=== PATIENT | female | born 1950 | race Caucasian/White ===

== ENCOUNTER 2016-10-30 13:42 | Inpatient (IN) ==
[2016-10-30] MEDS ORDERED: methylPREDNISolone 125 MG/2 ML VIAL IVP ONE (14:11)
[2016-10-30] MEDS ORDERED: Ipratropium/Albuterol Neb 3 ML IH ONE (14:11)
--- NOTE | 2016-10-30 14:17 | Emergency Department Note ---
Disposition Clinical Impression: Hypoxia, Hypercarbia Disposition: Admitted As Inpatient Condition: Good Referrals: Joseph Chapin MD [Primary Care Provider] - Forms: ED Satisfaction Letter Time of Disposition: 16:56 SOB HPI - General Chief Complaint: ED Shortness of Breath/Dyspnea Stated Complaint: [facility]ACI[facility], sent from [facility] Time Seen by Provider: 10/30/16 13:49 Source: patient Limitations: no limitations Nursing Notes Reviewed: Yes Vital Signs Reviewed: Yes - History of Present Illness 66 year old female who has a HX of breast cancer with mookie to her lymph nodes states that she was being treated for pneumonia recently about 2 months ago as an outpatinet and they had to stop her chemotherapy at that time. Patient states that she was being evaluated at the cancer center today and she fell more short of breath than usual. She states that she has been feeling increasingly short of breath with increased work of breathing and productive cough for the past two weeks. She typically wears 5-6LNC and ranges around 85% but today she doesnt feel like that is enough oxygen for her at thist time and she dripped inot the 80% She currently has increased her oxygen requirement and it has stablized to her baseline. She denies HX of DVTs/PEs. She also denies fevers, chills, nausea, vomitting, abdominal pain. Patient states that she does have dull chest pain but no previous history of GA. - Related Data Home Medications Medication Instructions Recorded Confirmed Albuterol Sulfate [Albuterol 2 puff IH Q4HR PRN 01/26/15 10/30/16 Inhaler] Calcium Carbonate/Vitamin D3 1 each PO DAILY 01/26/15 10/30/16 [Calcium 600-Vit D3 800 Tablet] Formoterol Fumarate [Perforomist] 20 mcg IH PRN PRN 01/26/15 10/30/16 GlipiZIDE [Glucotrol] 10 mg PO 0800 01/26/15 10/30/16 Losartan [Cozaar] 50 mg PO DAILY 01/26/15 10/30/16 Montelukast [Singulair] 10 mg PO DAILY 01/26/15 10/30/16 Omeprazole [PriLOSEC] 20 mg PO DAILY 01/26/15 10/30/16 Potassium Chloride [Klor-Con 10 meq PO DAILY 01/26/15 10/30/16 Sprinkle] Roflumilast [Daliresp] 500 mcg PO DAILY 01/26/15 10/30/16 Tiotropium [Spiriva] 18 mcg IH DAILY 01/26/15 10/30/16 Triamterene/HCTZ 37.5/25mg 1 each PO DAILY 01/26/15 10/30/16 [Dyazide] Vitamin E (Dl,Tocopheryl Acet) 400 unit PO DAILY 01/26/15 10/30/16 [Vitamin E] Budesonide Neb [Pulmicort Neb] 0.5 mg IH BIDR 06/26/16 10/30/16 Oxygen 1 each .ROUTE AD 07/09/16 10/30/16 Pravastatin Sodium [Pravachol] 40 mg PO DAILY 07/12/16 10/30/16 PredniSONE [Deltasone] 20 mg PO PRN PRN 07/12/16 10/30/16 Previous Rx's Medication Instructions Recorded HYDROcodone/Acet 10/325 mg [Cost 1 tab PO Q6HR PRN #56 tab 07/12/16 10-325 mg] Metoclopramide HCl 5 mg PO ACHS #60 tablet 10/01/16 Pantoprazole Sodium [Protonix] 40 mg PO DAILY #30 tablet. 10/01/16 Allergies Allergy/AdvReac Type Severity Reaction Status Date / Time fluticasone Allergy Blister Verified 10/01/16 12:31 [From Advair Diskus] salmeterol Allergy Blister Verified 10/01/16 12:31 [From Advair Diskus] Constitutional: Reports: weakness. Denies: fever, chills, weight change Eyes: Denies: eye pain, eye discharge, vision change ENT ED: Denies: ear pain, throat pain, dental pain, hearing loss, epistaxis, congestion, dysphagia Cardiovascular: Reports: chest pain, dyspnea on exertion. Denies: palpitations , edema, syncope Respiratory: Reports: dyspnea, wheezes. Denies: cough, hemoptysis, stridor Gastrointestinal: Denies: abdominal pain, nausea, vomiting, diarrhea, constipation, hematemesis, melena, hematochezia Genitourinary: Denies: dysuria, frequency, hematuria, discharge Musculoskeletal: Denies: back pain, neck pain, arthralgia, myalgia Integumentary: Denies: rash, abrasion, lesions Neurological: Denies: headache, weakness, numbness, paresthesias, confusion, abnormal gait, vertigo Psychiatric: Denies: anxiety, depression, suicidal thoughts, homicidal thoughts , auditory hallucinations, visual hallucinations Endocrine: Denies: fatigue Hematological/Lymphatic: Denies: easy bleeding, easy bruising Allergic/Immunologic: Denies: facial swelling, urticaria Past Medical History - Past Medical History Medical history: Reports: cancer, COPD, diabetes, hypertension Surgical history: Reports: cholecystectomy Psychiatric history: Reports: no psych history CHIEF ENGINEER history: Reports: no CHIEF ENGINEER history - Social History Smoking Status: Former smoker Smokeless Tobacco Status: No Alcohol use: Reports: none Drug use: Reports: none Physical Exam - General Limitations: no limitations General appearance: alert, in no apparent distress - Head Head exam: atraumatic, normocephalic, normal inspection - Eye Eye exam: Present: normal appearance, PERRL, EOMI - Expanded Eye Exam Pupils: Left: reactive - ENT ENT exam: normal exam, normal oropharynx, mucous membranes moist - Expanded ENT Exam External ear exam: Present: normal external inspection Mouth exam: Present: normal external inspection Teeth exam: Present: normal inspection Throat exam: Present: normal inspection - Neck Neck exam: Present: normal inspection, full ROM, trachea midline - Chest Chest inspection: Present: normal inspection, symmetric chest wall rise - Respiratory Respiratory exam: Present: normal lung sounds bilaterally - Cardiovascular Cardiovascular exam: Present: normal rhythm, tachycardia, normal heart sounds - Abdominal Exam Abdominal exam: Present: soft, Non-Tender. Absent: tenderness, distention, guarding, rebound, rigidity - Extremities Exam Extremities exam: Present: normal inspection, full ROM. Absent: tenderness, pedal edema - Expanded Upper Extremity Exam Shoulder exam: Present: normal inspection, full ROM Arm exam: Present: normal inspection, full ROM Elbow exam: Present: normal inspection, full ROM Forearm/Wrist exam: Present: normal inspection, full ROM Hand exam: Present: normal inspection, full ROM Vascular exam: Normal: capillary refill, radial pulse - Expanded Lower Extremity Exam Hip/Pelvis exam: Present: normal inspection, full ROM Upper leg exam: Present: normal inspection, full ROM Knee exam: Present: normal inspection, full ROM Lower leg exam: Present: normal inspection, full ROM Ankle exam: Present: normal inspection, full ROM Foot/toe exam: Present: normal inspection, full ROM Neurovascular/Tendon exam: Absent: motor deficit, sensory deficit, tendon deficit - Back Exam Back exam: Present: normal inspection, full ROM. Absent: tenderness - Neurological Exam Neurological exam: Present: alert, oriented X3 - Expanded Neurological Exam Patient oriented to: Present: person, place, time Coma Scale Eye Opening: Spontaneous Coma Scale Motor Response: Obeys Commands Coma Scale Verbal Response: Oriented Coma Scale Total: 15 - Psychiatric Psychiatric exam: Present: normal affect, normal mood - Skin Skin exam: Present: warm, dry, intact, normal color Course Course Narrative: we will do a sepsis workup due to elevatd HR and rule out pneumonia in addition to CTA chest to rule out PE. IVF and duoneb/solumedrol for therapy. - Reevaluation(s) Reevaluation #1: patinet is retaining CO2, we will place patient on bipap due to increased hypoxia. Time: 15:35 - Consultations Consultation #1: discussed case with Dr. River and he accepts patient for admission. Time: 16:55 Vital Signs Temperature 97.7 F 10/30/16 13:45 Pulse Rate 104 10/30/16 13:45 Respiratory Rate 18 10/30/16 13:45 Blood Pressure 152/82 10/30/16 13:45 O2 Sat by Pulse Oximetry 85 10/30/16 13:45 Temperature 97.7 F 10/30/16 13:45 Pulse Rate 107 10/30/16 16:49 Respiratory Rate 24 10/30/16 16:49 Blood Pressure 138/56 10/30/16 16:49 O2 Sat by Pulse Oximetry 97 10/30/16 16:49 Oxygen Delivery Oxygen Delivery Bipap Shortness of Breath/Dyspnea - Lab Data Result diagrams: 10/30/16 14:24 10/30/16 14:24 Lab Results 10/30/16 10/30/16 10/30/16 Range/Units 14:24 14:24 14:24 WBC 9.0 (4.3-11.1) K/mcL RBC 4.22 (3.82-4.97) M/mcL Hgb 11.5 (11.5-15.4) g/dL Hct 38.1 (35.3-44.9) % MCV 90.3 (83.0-100.0) fL MCH 27.3 L (28.0-33.3) pg MCHC 30.2 L (31.6-35.5) g/dL RDW 16.0 H (11.5-14.5) % Plt Count 275 (140-400) K/mcL MPV 10.2 (9.4-12.4) fL Immature Gran % 0.7 (0-4) % Seg Neutrophils % 75.2 % Lymphocytes % 16.4 % Monocytes % 6.5 % Eosinophils % 0.9 % Basophils % 0.3 % Neutrophils # 6.7 (1.6-8.9) K/mcL Lymphocytes # 1.5 (0.6-4.6) K/mcL Monocytes # 0.6 (0.0-1.3) K/mcL Eosinophils # 0.1 (0.0-0.6) K/mcL Basophils # 0.0 (0.0-0.2) K/mcL PT 11.1 (9.4-12.1) Seconds INR 1.0 APTT 27.9 (26.0-36.0) Seconds ABG pH (7.32-7.45) pH Units ABG pCO2 (35-45) mmHg ABG pO2 (85-104) mmHg ABG HCO3 (21-27) mEQ/L ABG Total CO2 (20-26) mEq/L ABG O2 Saturation (95-98) % ABG Base Excess (-2.0 to 3.0) mEq/L Liter Flow L/MIN Blood Gas Modality Inspired O2 % Sodium 139 (136-145) mEq/L Potassium 3.9 (3.5-4.5) mEq/L Chloride 91 L (98-109) mEq/L Carbon Dioxide 44 H* (19-29) mEq/L BUN 12 (7-20) mg/dL Creatinine 0.65 (0.57-1.11) mg/dL Est GFR ( Amer) > 60 (> 60) Est GFR (Non-Af Amer) > 60 (> 60) BUN/Creatinine Ratio 18 (6-26) Glucose 153 H (70-99) mg/dL Calculated Osmolality 291 (280-300) Lactic Acid (0.5-2.2) mmol/L Calcium 9.5 (8.6-10.8) mg/dL Phosphorus (2.3-4.7) mg/dL Magnesium (1.6-2.6) mg/dL Total Bilirubin (0.2-1.2) mg/dL Direct Bilirubin (0.0-0.5) mg/dL Indirect Bilirubin (0.0-1.2) mg/dL AST (5-34) Units/L ALT (0-55) Units/L Alkaline Phosphatase (38-126) Units/L Troponin I (0-0.03) ng/mL Serum Total Protein (6.0-8.3) g/dL Albumin (3.5-5.0) g/dL Globulin (2.4-3.5) g/dL Albumin/Globulin Ratio (1.1-2.2) Urine Color (Yellow) Urine Clarity (Clear) Urine pH (5.0-8.0) pH Units Ur Specific [place] (1.010-1.025) Urine Protein (Neg-Trace) mg/dL Urine Glucose (UA) (Normal) mg/dL Urine Ketones (Negative) mg/dL Urine Blood (Negative) Urine Nitrite (Negative) Urine Bilirubin (Negative) Urine Urobilinogen (Normal) mg/dL Ur Leukocyte Esterase (Negative) Urine Microscopic RBC (0-3) per hpf Urine Microscopic WBC (0-3) per hpf Ur Squamous Epith Cells (None-Few) per lpf Urine Bacteria (None-Few) per hpf Hyaline Casts (None-Few) per lpf Ur Culture Indicated? (NO) 10/30/16 10/30/16 10/30/16 Range/Units 14:24 14:24 14:24 WBC (4.3-11.1) K/mcL RBC (3.82-4.97) M/mcL Hgb (11.5-15.4) g/dL Hct (35.3-44.9) % MCV (83.0-100.0) fL MCH (28.0-33.3) pg MCHC (31.6-35.5) g/dL RDW (11.5-14.5) % Plt Count (140-400) K/mcL MPV (9.4-12.4) fL Immature Gran % (0-4) % Seg Neutrophils % % Lymphocytes % % Monocytes % % Eosinophils % % Basophils % % Neutrophils # (1.6-8.9) K/mcL Lymphocytes # (0.6-4.6) K/mcL Monocytes # (0.0-1.3) K/mcL Eosinophils # (0.0-0.6) K/mcL Basophils # (0.0-0.2) K/mcL PT (9.4-12.1) Seconds INR APTT (26.0-36.0) Seconds ABG pH (7.32-7.45) pH Units ABG pCO2 (35-45) mmHg ABG pO2 (85-104) mmHg ABG HCO3 (21-27) mEQ/L ABG Total CO2 (20-26) mEq/L ABG O2 Saturation (95-98) % ABG Base Excess (-2.0 to 3.0) mEq/L Liter Flow L/MIN Blood Gas Modality Inspired O2 % Sodium (136-145) mEq/L Potassium (3.5-4.5) mEq/L Chloride (98-109) mEq/L Carbon Dioxide (19-29) mEq/L BUN (7-20) mg/dL Creatinine (0.57-1.11) mg/dL Est GFR ( Amer) (> 60) Est GFR (Non-Af Amer) (> 60) BUN/Creatinine Ratio (6-26) Glucose (70-99) mg/dL Calculated Osmolality (280-300) Lactic Acid 1.2 (0.5-2.2) mmol/L Calcium (8.6-10.8) mg/dL Phosphorus 3.5 (2.3-4.7) mg/dL Magnesium 1.7 (1.6-2.6) mg/dL Total Bilirubin 0.5 (0.2-1.2) mg/dL Direct Bilirubin 0.2 (0.0-0.5) mg/dL Indirect Bilirubin 0.3 (0.0-1.2) mg/dL AST 12 (5-34) Units/L ALT 12 (0-55) Units/L Alkaline Phosphatase 45 (38-126) Units/L Troponin I 0.02 (0-0.03) ng/mL Serum Total Protein 6.8 (6.0-8.3) g/dL Albumin 3.5 (3.5-5.0) g/dL Globulin 3.3 (2.4-3.5) g/dL Albumin/Globulin Ratio 1.1 (1.1-2.2) Urine Color (Yellow) Urine Clarity (Clear) Urine pH (5.0-8.0) pH Units Ur Specific [place] (1.010-1.025) Urine Protein (Neg-Trace) mg/dL Urine Glucose (UA) (Normal) mg/dL Urine Ketones (Negative) mg/dL Urine Blood (Negative) Urine Nitrite (Negative) Urine Bilirubin (Negative) Urine Urobilinogen (Normal) mg/dL Ur Leukocyte Esterase (Negative) Urine Microscopic RBC (0-3) per hpf Urine Microscopic WBC (0-3) per hpf Ur Squamous Epith Cells (None-Few) per lpf Urine Bacteria (None-Few) per hpf Hyaline Casts (None-Few) per lpf Ur Culture Indicated? (NO) 10/30/16 10/30/16 Range/Units 14:39 14:40 WBC (4.3-11.1) K/mcL RBC (3.82-4.97) M/mcL Hgb (11.5-15.4) g/dL Hct (35.3-44.9) % MCV (83.0-100.0) fL MCH (28.0-33.3) pg MCHC (31.6-35.5) g/dL RDW (11.5-14.5) % Plt Count (140-400) K/mcL MPV (9.4-12.4) fL Immature Gran % (0-4) % Seg Neutrophils % % Lymphocytes % % Monocytes % % Eosinophils % % Basophils % % Neutrophils # (1.6-8.9) K/mcL Lymphocytes # (0.6-4.6) K/mcL Monocytes # (0.0-1.3) K/mcL Eosinophils # (0.0-0.6) K/mcL Basophils # (0.0-0.2) K/mcL PT (9.4-12.1) Seconds INR APTT (26.0-36.0) Seconds ABG pH 7.39 (7.32-7.45) pH Units ABG pCO2 71 H* (35-45) mmHg ABG pO2 73 L (85-104) mmHg ABG HCO3 43.0 H (21-27) mEQ/L ABG Total CO2 45.2 H (20-26) mEq/L ABG O2 Saturation 94 L (95-98) % ABG Base Excess 14.9 H (-2.0 to 3.0) mEq/L Liter Flow 5 L/MIN Blood Gas Modality [place] Inspired O2 40 % Sodium (136-145) mEq/L Potassium (3.5-4.5) mEq/L Chloride (98-109) mEq/L Carbon Dioxide (19-29) mEq/L BUN (7-20) mg/dL Creatinine (0.57-1.11) mg/dL Est GFR ( Amer) (> 60) Est GFR (Non-Af Amer) (> 60) BUN/Creatinine Ratio (6-26) Glucose (70-99) mg/dL Calculated Osmolality (280-300) Lactic Acid (0.5-2.2) mmol/L Calcium (8.6-10.8) mg/dL Phosphorus (2.3-4.7) mg/dL Magnesium (1.6-2.6) mg/dL Total Bilirubin (0.2-1.2) mg/dL Direct Bilirubin (0.0-0.5) mg/dL Indirect Bilirubin (0.0-1.2) mg/dL AST (5-34) Units/L ALT (0-55) Units/L Alkaline Phosphatase (38-126) Units/L Troponin I (0-0.03) ng/mL Serum Total Protein (6.0-8.3) g/dL Albumin (3.5-5.0) g/dL Globulin (2.4-3.5) g/dL Albumin/Globulin Ratio (1.1-2.2) Urine Color Yellow (Yellow) Urine Clarity Clear (Clear) Urine pH 7.5 (5.0-8.0) pH Units Ur Specific [place] 1.010 (1.010-1.025) Urine Protein Negative (Neg-Trace) mg/dL Urine Glucose (UA) Normal (Normal) mg/dL Urine Ketones Negative (Negative) mg/dL Urine Blood Negative (Negative) Urine Nitrite Negative (Negative) Urine Bilirubin Negative (Negative) Urine Urobilinogen Normal (Normal) mg/dL Ur Leukocyte Esterase Trace H (Negative) Urine Microscopic RBC 0-3 (0-3) per hpf Urine Microscopic WBC 0-3 (0-3) per hpf Ur Squamous Epith Cells Moderate H (None-Few) per lpf Urine Bacteria None Seen (None-Few) per hpf Hyaline Casts None Seen (None-Few) per lpf Ur Culture Indicated? YES A (NO) - EKG Data EKG attestation: Yes I reviewed and interpreted this EKG. EKG results narrative: NSR with rate of 99. NO STEMI. normla intevals. occasional PVCs. no change from 02/17/15 1415
[2016-10-30 14:39] LABS: Basophils % 0.3 %; Eosinophils # 0.1 K/mcL (0.0-0.6); Eosinophils % 0.9 %; Hematocrit 38.1 % (35.3-44.9); Hemoglobin 11.5 g/dL (11.5-15.4); Immature Granulocytes % 0.7 % (0-4); Lymphocytes # 1.5 K/mcL (0.6-4.6); Lymphocytes % 16.4 %; Mean Corpuscular HGB Conc 30.2 g/dL (31.6-35.5); Mean Corpuscular Hemoglobin 27.3 pg (28.0-33.3); Mean Corpuscular Volume 90.3 fL (83.0-100.0); Mean Platelet Volume 10.2 fL (9.4-12.4); Monocytes # 0.6 K/mcL (0.0-1.3); Monocytes % 6.5 %; Neutrophils # 6.7 K/mcL (1.6-8.9); Platelet Count 275 K/mcL (140-400); Red Blood Count 4.22 M/mcL (3.82-4.97); Segmented Neutrophils % 75.2 %
[2016-10-30 14:48] LABS: Prothrombin Time 11.1 Seconds (9.4-12.1)
[2016-10-30 14:49] LABS: Bilirubin,Urine Negative (Negative); Blood,Urine Negative (Negative); Clarity,Urine Clear (Clear); Color,Urine Yellow (Yellow); Glucose,Urine (UA) Normal (Normal); Ketones,Urine Negative (Negative); Leukocyte Esterase,Urine Trace (Negative); Nitrite,Urine Negative (Negative); PH,Urine 7.5 pH Units (5.0-8.0); Protein,Urine Negative (Neg-Trace); Urobilinogen,Urine Normal (Normal)
[2016-10-30 14:51] LABS: Activated Partial Thrombo Time 27.9 Seconds (26.0-36.0); BUN/Creatinine Ratio 18 (6-26); Blood Urea Nitrogen 12 mg/dL (7-20); Calcium 9.5 mg/dL (8.6-10.8); Chloride 91 mEq/L (98-109); Glucose 153 mg/dL (70-99); Osmolality,Calculated 291 (280-300); Potassium 3.9 mEq/L (3.5-4.5); Sodium 139 mEq/L (136-145); eGFR For African Americans > 60 (> 60); eGFR For Non-African Americans > 60 (> 60)
[2016-10-30 14:52] LABS: Bacteria,Urine None Seen per hpf (None-Few); Hyaline Casts,Urine None Seen per lpf (None-Few); RBC,Urine 0-3 per hpf (0-3); Squamous Epithelial Cell,Urine Moderate per lpf (None-Few); WBC,Urine 0-3 per hpf (0-3)
[2016-10-30 14:52] LABS: Albumin 3.5 g/dL (3.5-5.0); Albumin/Globulin Ratio 1.1 (1.1-2.2); Bilirubin,Direct 0.2 mg/dL (0.0-0.5); Bilirubin,Indirect 0.3 mg/dL (0.0-1.2); Bilirubin,Total 0.5 mg/dL (0.2-1.2); Globulin 3.3 g/dL (2.4-3.5); Magnesium 1.7 mg/dL (1.6-2.6); Phosphorous 3.5 mg/dL (2.3-4.7); Total Protein 6.8 g/dL (6.0-8.3)
[2016-10-30 14:53] LABS: ABG Base Excess 14.9 mEq/L (-2.0 to 3.0); ABG Oxygen Saturation 94 % (95-98); ABG PH 7.39 pH Units (7.32-7.45); ABG PO2 73 mmHg (85-104); ABG TCO2 45.2 mEq/L (20-26)
[2016-10-30] MEDS: 0.9 % Sodium Chloride 1,000 ML IVC SCH ×2 (14:53→17:36)
[2016-10-30 14:57] LABS: Carbon Dioxide 44 mEq/L (19-29)
[2016-10-30 15:01] LABS: ABG PCO2 71 mmHg (35-45); Blood Gas Liter Flow 5 L/MIN
[2016-10-30 15:02] LABS: Blood Gas FiO2 40 %
[2016-10-30] MEDS ORDERED: *HR* LORazepam 2 MG/ML VIAL IVP ONE ×2 (16:07→19:50)
[2016-10-30 18:10] LABS: ABG Base Excess 13.4 mEq/L (-2.0 to 3.0); ABG HCO3 42.8 mEQ/L (21-27); ABG Oxygen Saturation 97 % (95-98); ABG PH 7.31 pH Units (7.32-7.45); ABG PO2 103 mmHg (85-104); ABG TCO2 45.4 mEq/L (20-26)
[2016-10-30 18:12] LABS: ABG PCO2 85 mmHg (35-45); Blood Gas FiO2 45 %
[2016-10-30] MEDS ORDERED: *HR* HYDROcodone/Acet 10/325 mg TABLET PO PRN (19:32)
[2016-10-30] MEDS ORDERED: predniSONE 20 MG TABLET PO SCH (19:32)
[2016-10-30] MEDS ORDERED: Dextrose Gel 15 GM PO PRN ×2 (19:42)
[2016-10-30] MEDS ORDERED: D5% in Water 1,000 ML IVC PRN (19:42)
[2016-10-30] MEDS ORDERED: *HR* Dextrose 50 % in Water (Syg) 50 ML SYRINGE IVP PRN (19:42)
[2016-10-30] MEDS ORDERED: NON-FORMULARY MEDICATION 1 EACH EACH (Oxygen [Oxygen] 1 EACH) SCH (19:45)
[2016-10-30] MEDS ORDERED: Naloxone 0.4 MG/ML INJ IVP PRN (19:51)
--- NOTE | 2016-10-30 20:03 | Internal Med History&Physical ---
Addendum entered and electronically signed by Sabas Taylor 10/30/16 20:33: H/O diabetes mellitus: DC home diabetics. Before meals at bedtime Accu-Cheks, diabetic/cardiac diet, implement low-sliding scale insulin coverage H/O hypertension. Remains intermittently hypertensive throughout the stay. Also, additionally has pulmonary hypertension. Resume home blood pressure medications. Original Note: <Sabas Taylor - Last Filed: 10/30/16 19:57> Date of Encounter: 10/30/16 Time of Encounter: 19:57 Assessment and Plan (1) Acute exacerbation of chronic obstructive pulmonary disease (COPD) Current visit: Yes Status: Acute Acute on chronic exacerbation of COPD. Patient has a past medical history severe emphysema and COPD. Chest x-ray vascular congestion, trace bilateral pleural effusions. ABG indicates respiratory acidosis with pH of 7.31, PCO2 85 , PO2 103, HCO3 42.8. Continuous telemetry Continuous SPO2 Continue oxygen therapy at home dose titrated to maintain SPO2 between 85% and 94%. Patient states that her SPO2 at home is normally around 85% Sputum cultures Due to nebs every 4 hours for shortness of breath and wheezing Azithromycin 500 mg IV piggyback daily for inflammation Solu-Medrol 40 mg IV every 6 hours Ativan 0.5 mg [address] patient on BiPAP and redraw ABG in 2 hours. Consider additional ABGs depending upon results Resuscitation status was discussed with the patient upon this visit and she decided to make her status DNR CCA/DNI. (2) Hypoxia Current visit: Yes Status: Acute Hypoxic upon arrival to the ED. Extensive history of COPD and emphysema Patient states that her normal SPO2 at home is on average around 85%. Placed on BiPAP in the emergency department and ABGs obtained. ABGs indicate respiratory acidosis. Second ABG showed improvement PO2, increased to 103. Continue oxygen therapy at home dose and maintain SPO2 between 85 and 94% Place patient on BiPAP Continuous SPO2 monitoring continuous cardiac monitoring Azithromycin 500 mg IV piggyback every 24 hours DuoNeb's every 4 hours Solu-Medrol 40 mg IV push every 6 hours (3) Hypercarbia Current visit: Yes Status: Acute Patient remains hypercarbic even after being on BiPAP for 2 hours in the emergency department PCO2 85 which is an increase from 71. She states she is unable tolerate BiPAP very long periods of time 0.5 mg Ativan IV push 1 dose Continue oxygen therapy at home dose and maintain SPO2 between 85 and 94% Place patient on BiPAP and redraw ABGs and 2 hours at 10 o' clock Continuous SPO2 monitoring continuous cardiac monitoring Azithromycin 500 mg IV piggyback every 24 hours DuoNeb's every 4 hours Solu-Medrol 40 mg IV push every 6 hours (4) DVT prophylaxis Current visit: Yes Status: Acute High risk for DVT due to prolonged immobility. Start patient on 40 mg subcutaneous Lovenox daily. Internal Medicine - H&P: HPI Chief complaint: increasing SOB Admitted From: Home Plans for Post Hospital Care: Home History of present illness: Ms. Crisostomo is a 66 year old female DM, COPD, emphysema, HTN, breast cancer, and recent cancer in the lymph nodes surrounding the breast. She reports to [facility] with increasing shortness of breath. All information obtained from chart review and patient report. Patient notes that over the last 3 months she has had increasing shortness of breath. However, she reports ongoing SOB with rest which is further exacerbated by exertion more than her baseline. She wears home O2 at 6LNC normally helps with the SOB, however, she is continuing to decline at this time. In the emergency department she was given 125 mg methylprednisone, a 15 minute DuoNeb and was placed on BiPAP for 2 hours without any real improvement. She states that she was unable to tolerate the BiPAP long-term. She continues to be in respiratory distress at this time and Upon exam is on nasal cannula 6 L/m NC. CTA was negative for PE or pneumonia, however did not reveal emphysema. Chest x-ray showed vascular congestion, trace bilateral pleural effusions and mild cardiomegaly with dilation of pulmonary trunk suggesting pulmonary hypertension. She is being admitted to the [facility] for further workup and evaluation. Past Med Surg Social Fam HX - Past Medical History Medical history: cancer, COPD, diabetes, hypertension Psychiatric history: no psych history - Past Surgical History Surgical History: cholecystectomy - Social History Smoking Status: Former smoker Smokeless Tobacco Status: No Alcohol use: none Drug use: none - Family History Mother Family Member Ethnicity: Non- Living Status: Hx Family Cardiac Disorders: Yes Hx Family Respiratory Disorders: No Hx Family Cancer: No Hx Family GI Disorders: No Hx Family Endocrine Disorder: No Hx Family Neuromuscular Disorders: No Hx Family Neurologic Disorders: No Hx Family HEENT Disorders: No Hx Family Autoimmune Disorders: No Brother Living Status: Still Living Hx Family Cardiac Disorders: Yes Hx Family Respiratory Disorders: No Hx Family Cancer: No Hx Family GI Disorders: No Hx Family Endocrine Disorder: No Hx Family Neuromuscular Disorders: No Hx Family Neurologic Disorders: No Hx Family HEENT Disorders: No Hx Family Autoimmune Disorders: No Father Living Status: Cause of : CVA Internal Medicine - H&P: Meds Albuterol Sulfate [Albuterol Inhaler] 2 puff IH Q4HR PRN 01/26/15 [History] Calcium Carbonate/Vitamin D3 [Calcium 600-Vit D3 800 Tablet] 1 each PO DAILY [History] Formoterol Fumarate [Perforomist] 20 mcg IH PRN PRN 01/26/15 [History] GlipiZIDE [Glucotrol] 10 mg PO 0800 01/26/15 [History] Losartan [Cozaar] 50 mg PO DAILY 01/26/15 [History] Montelukast [Singulair] 10 mg PO DAILY 01/26/15 [History] Omeprazole [PriLOSEC] 20 mg PO DAILY 01/26/15 [History] Potassium Chloride [Klor-Con Sprinkle] 10 meq PO DAILY 01/26/15 [History] Roflumilast [Daliresp] 500 mcg PO DAILY 01/26/15 [History] Tiotropium [Spiriva] 18 mcg IH DAILY 01/26/15 [History] Triamterene/HCTZ 37.5/25mg [Dyazide] 1 each PO DAILY 01/26/15 [History] Vitamin E (Dl,Tocopheryl Acet) [Vitamin E] 400 unit PO DAILY 01/26/15 [History] Budesonide Neb [Pulmicort Neb] 0.5 mg IH BIDR 06/26/16 [History] Oxygen 1 each .ROUTE AD 07/09/16 [History] HYDROcodone/Acet 10/325 mg [[place] 10-325 mg] 1 tab PO Q6HR PRN #56 tab 07/12/16 [Rx] Pravastatin Sodium [Pravachol] 40 mg PO DAILY 07/12/16 [History] PredniSONE [Deltasone] 20 mg PO PRN PRN 07/12/16 [History] Metoclopramide HCl 5 mg PO ACHS #60 tablet 10/01/16 [Rx] Pantoprazole Sodium [Protonix] 40 mg PO DAILY #30 tablet. 10/01/16 [Rx] 3 Allergy/AdvReac Type Severity Reaction Status Date / Time fluticasone Allergy Blister Verified 10/01/16 12:31 [From Advair Diskus] salmeterol Allergy Blister Verified 10/01/16 12:31 [From Advair Diskus] All Systems PM: A 10-system review of systems was performed and is negative for pertinent findings except as documented above in the HPI. - Constitutional Constitutional: fatigue, weakness, no chills, no excessive sweating, no fever(s) , no night sweats - EENT Eyes: no change in vision, no discharge, no pain, no photophobia Ears: no ear discharge, no ear pain, no tinnitus Nose, mouth and throat: no dysphagia, no nasal discharge, no neck pain, no sore throat - Cardiovascular Cardiovascular ROS IM: dyspnea (Reports dyspnea ongoing for the last 3 months. Gradually becoming worse.), dyspnea on exertion, palpitations, no chest pain, no diaphoresis, no edema, no lightheadedness, no syncope - Respiratory Respiratory: cough, dyspnea, dyspnea on exertion, no wheezing, no chest congestion, no excessive phlegm production, no change in phlegm color - Gastrointestinal Gastrointestinal: no abdominal pain, no constipation, no diarrhea, no hematemesis, no hematochezia, no melena, no nausea, no vomiting - Genitourinary Genitourinary: no change in urinary stream, no dysuria, no flank pain, no hematuria - Musculoskeletal Musculoskeletal ROS IM: no numbness, no tingling - Integumentary Integumentary IM: no rash, no unusual bruising - Neurological Neurological ROS: no confusion, no convulsions, no disequilibrium, no dizziness , no focal weakness, no numbness, no tingling, no tremor(s) - Hematologic/Lymphatic Hematologic/Lymphatic: no easy bruising - Constitutional Vitals: Temp Pulse Resp BP Pulse Ox 98.0 F 114 18 152/58 97 10/30/16 19:20 10/30/16 19:20 10/30/16 19:20 10/30/16 19:20 10/30/16 19:20 General appearance: Present: mild distress, A&O X 3, obese - Head Head exam: Present: atraumatic, normocephalic - Eye Eye exam: Present: EOMI, PERRL, conjuntiva pink, sclera anicteric Pupils: Present: PERRL - Neck Neck exam general surgery: Present: supple, trachea midline. Absent: lymphadenopathy - Respiratory Respiratory exam: Present: decreased breath sounds, respiratory distress (Mild rest for distress noted. ). Absent: accessory muscle use, chest wall tenderness, rales, rhonchi, wheezes - Cardiovascular Cardiovascular exam: Present: RRR, +S1, +S2. Absent: diastolic murmur, gallop, rubs, systolic murmur - GI/Abdominal GI/Abdominal exam: Present: normal bowel sounds, soft, no peritoneal signs. Absent: distended, tenderness - Extremities Exam Extremities exam: Present: warm, radial pulses palpable and symmetrical. Absent : calf tenderness, cyanotic, pedal edema - Expanded Lower Extremities Exam Lower Leg exam: Absent: swelling Ankle exam: Absent: swelling Foot/Toe exam: Absent: swelling - Neurological Exam Neurological exam: Present: CN II-XII intact, oriented X3, no focal deficits. Absent: pronater drift, facial droop, speech deficit - Skin Skin exam: Present: dry, intact. Absent: cyanosis, diaphoretic, normal color Internal Med - H&P Results - Labs CBC & Chem 7: 10/30/16 14:24 10/30/16 14:24 - ABG Interpretation ABG results: 10/30/16 17:55 ABG pH 7.31 L ABG pCO2 85 H* ABG pO2 103 ABG HCO3 42.8 H ABG Total CO2 45.4 H ABG O2 Saturation 97 ABG Base Excess 13.4 H Interpretation: respiratory acidosis (Respiratory acidosis noted on second blood gas.) - EKG Data -: EKG Interpreted by Myself EKG shows normal: sinus rhythm Rate: normal (with frequent PVC's), tachycardia - EKG Data Prior EKG available for review: yes When compared to previous EKG: there is no significant change - Diagnostic Studies Chest x-ray Additional comments: Exhibits interstitial prominence likely worsening vascular congestion, trace bilateral pleural effusions, cardiomegaly and dilation of the pulmonary trunk suggestive of pulmonary hypertension CT scan - chest Additional comments: CTA of chest negative for PE and pneumonia. Emphysema noted <Gerry Friedman - Last Filed: 10/30/16 22:41> Date of Encounter: 10/30/16 Internal Medicine - H&P: HPI History of present illness: Ms. Crisostomo is a 66 year old female All Systems PM: A 10-system review of systems was performed and is negative for pertinent findings except as documented above in the HPI. - Constitutional Vitals: Temp Pulse Resp BP Pulse Ox 98.0 F 114 20 152/58 97 10/30/16 19:20 10/30/16 19:20 10/30/16 20:24 10/30/16 19:20 10/30/16 20:24 Internal Med - H&P Results - Labs CBC & Chem 7: 10/30/16 14:24 10/30/16 14:24 - ABG Interpretation ABG results: 10/30/16 17:55 ABG pH 7.31 L ABG pCO2 85 H* ABG pO2 103 ABG HCO3 42.8 H ABG Total CO2 45.4 H ABG O2 Saturation 97 ABG Base Excess 13.4 H - Attending Attestation I have personally performed a face to face evaluation on this patient. I have reviewed and agree with the care plan. History and Exam by me shows: 66-year-old female with a history of marivel recurrence of breast cancer with further therapy withheld secondary to lung function who presents with acute COPD exacerbation. She noted increased shortness of breath no last 3 days, better with rest, worse with activity. She uses about 5-6 L oxygen at home. Reviewed CTA negative for PE or pneumonia. General - AAO x 3 Psych - Appropriate affect/speech. No agitation Eyes - UDAY. Eye lids intact. No scleral icterus Heart - Sinus. RRR. S1 and S2 present. No added HS/murmurs appreciated. No elevated JVD appreciated. No calf swellings/erythema Lung - Adequate air entry b/l, bibasal crackles, no wheeze GI - Soft, non-tender. No hepatosplenomegaly/ascites. BS+ - No CVA/suprapubic tenderness or palpable bladder distension Skin - Intact. No rash/petechiae/ecchymosis. Warm extremities MSK - Joints with normal ROM. No joint swellings ROS 14 point review of systems reviewed as best as possible given presentation. Pertinent positive or negative as per HPI or otherwise reviewed as negative A/P COPD therapy with IV steroids, duonebs, azithromycin. Close monitoring
[2016-10-30] MEDS ORDERED: Ipratropium/Albuterol Neb 3 ML ONE (20:15)
[2016-10-30] MEDS: Ipratropium/Albuterol Neb 3 ML IH SCH ×2 (20:23→23:25)
[2016-10-30] MEDS: Azithromycin 500 MG in D5% in Water 250 ML IVPB SCH (21:08)
[2016-10-30] MEDS: Insulin LISPRO 300 UNITS/3 ML VIAL SQ SCH (21:09)
[2016-10-30] MEDS ORDERED: *HR* Metoprolol 5 MG/5 ML VIAL IVP ONE (21:15)
[2016-10-30 22:49] LABS: ABG PH 7.27 pH Units (7.32-7.45); ABG PO2 139 mmHg (85-104)
[2016-10-30 22:50] LABS: ABG Base Excess 10.3 mEq/L (-2.0 to 3.0); ABG Oxygen Saturation 99 % (95-98); ABG TCO2 42.7 mEq/L (20-26)
[2016-10-30 22:51] LABS: Blood Gas FiO2 45 %
[2016-10-30 22:53] LABS: ABG PCO2 87 mmHg (35-45)
[2016-10-31] MEDS: MethylPREDNISolone 40 MG/ML VIAL IVP SCH ×3 (00:48→12:23)
[2016-10-31] MEDS: Ipratropium/Albuterol Neb 3 ML IH SCH ×6 (03:33→23:10)
[2016-10-31 05:17] LABS: Basophils % 0.2 %; Hematocrit 33.9 % (35.3-44.9); Hemoglobin 10.5 g/dL (11.5-15.4); Immature Granulocytes % 1.6 % (0-4); Lymphocytes # 0.7 K/mcL (0.6-4.6); Lymphocytes % 12.2 %; Mean Corpuscular Volume 90.4 fL (83.0-100.0); Mean Platelet Volume 10.5 fL (9.4-12.4); Monocytes # 0.2 K/mcL (0.0-1.3); Monocytes % 2.9 %; Neutrophils # 4.7 K/mcL (1.6-8.9); Platelet Count 237 K/mcL (140-400); Red Blood Count 3.75 M/mcL (3.82-4.97); Red Cell Distribution Width 15.9 % (11.5-14.5); Segmented Neutrophils % 83.1 %
[2016-10-31 05:25] LABS: Alanine Aminotransferase 19 Units/L (0-55); Albumin 3.1 g/dL (3.5-5.0); Alkaline Phosphatase 40 Units/L (38-126); Aspartate Amino Transferase 19 Units/L (5-34); BUN/Creatinine Ratio 23 (6-26); Bilirubin,Total 0.3 mg/dL (0.2-1.2); Blood Urea Nitrogen 14 mg/dL (7-20); Calcium 9.3 mg/dL (8.6-10.8); Carbon Dioxide 38 mEq/L (19-29); Chloride 94 mEq/L (98-109); Globulin 3.1 g/dL (2.4-3.5); Glucose 255 mg/dL (70-99); Osmolality,Calculated 299 (280-300); Potassium 4.2 mEq/L (3.5-4.5); Sodium 140 mEq/L (136-145); Total Protein 6.2 g/dL (6.0-8.3); eGFR For African Americans > 60 (> 60); eGFR For Non-African Americans > 60 (> 60)
[2016-10-31] MEDS: *HR* Enoxaparin 40 MG/0.4 ML SYRINGE SQ SCH (06:12)
--- NOTE | 2016-10-31 06:25 | Electrocardiograph Report ---
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
[2016-10-31 08:56] LABS: ABG Base Excess 15.1 mEq/L (-2.0 to 3.0); ABG HCO3 43.5 mEQ/L (21-27); ABG Oxygen Saturation 93 % (95-98); ABG PH 7.36 pH Units (7.32-7.45); ABG PO2 71 mmHg (85-104); ABG TCO2 45.9 mEq/L (20-26)
[2016-10-31 08:58] LABS: ABG PCO2 77 mmHg (35-45)
[2016-10-31 08:59] LABS: Blood Gas FiO2 36 %
[2016-10-31] MEDS ORDERED: Pantoprazole 40 MG VIAL IVP SCH (09:00)
[2016-10-31] MEDS ORDERED: VITAMIN D3 PO SCH (09:00)
[2016-10-31] MEDS ORDERED: CALCIUM CARBONATE PO SCH (09:00)
[2016-10-31] MEDS: (Roflumilast [Daliresp] 500 MCG) PO SCH (10:05)
[2016-10-31] MEDS: Insulin LISPRO 300 UNITS/3 ML VIAL SQ SCH ×4 (10:10→20:51)
--- NOTE | 2016-10-31 14:53 | Electrocardiograph Report ---
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
--- NOTE | 2016-10-31 16:14 | Internal Med Progress Note ---
Date of Encounter: 10/31/16 Time of Encounter: 16:12 - Assessment and plan (1) Acute respiratory failure with hypercapnia Current Visit: Yes Status: Acute (2) Acute exacerbation of chronic obstructive pulmonary disease (COPD) Current Visit: Yes Status: Acute (3) Diabetes Current Visit: Yes Status: Acute Qualifiers: Diabetes mellitus type: type 2 Diabetes mellitus complication status: without complication Qualified Code(s): E11.9 - Type 2 diabetes mellitus without complications (4) Hypertension Current Visit: No Status: Chronic Qualifiers: Hypertension type: essential hypertension Qualified Code(s): I10 - Essential (primary) hypertension (5) Cancer of right breast, stage 2 Current Visit: Yes Status: Chronic (6) DVT prophylaxis Current Visit: Yes Status: Acute - Subjective Interval history: Ms. Crisostomo is a 66 year old female DM, COPD, emphysema, HTN, breast cancer, and recent cancer in the lymph nodes surrounding the breast. She reports to [facility] with increasing shortness of breath. Patient is admitted for acute hypercapnic respiratory failure due to COPD exacerbation. She is on BiPAP. I have increased her steroids and some theophylline continue nebulizers and antibiotics. She may take 3-4 days to improve. Patient has underlying diabetes hypertension dyslipidemia and home medication will be continued. Daily blood pressure and glucose monitoring. She has a breast cancer and she is going through chemotherapy but she is not neutropenic - Constitutional Vitals: Temp Pulse Resp BP Pulse Ox 97.9 F 84 14 142/58 97 10/31/16 11:48 10/31/16 11:48 10/31/16 15:22 10/31/16 11:48 10/31/16 15:22 General appearance: Present: mild distress, A&O X 3, obese - Head Head exam: Present: atraumatic, normocephalic - Eye Eye exam: Present: PERRL, conjuntiva pink, sclera anicteric Pupils: Present: PERRL - Neck Neck exam general surgery: Present: supple, trachea midline. Absent: lymphadenopathy - Respiratory Respiratory exam: Present: decreased breath sounds, wheezes. Absent: accessory muscle use, rales, rhonchi - Cardiovascular Cardiovascular exam: Present: RRR, +S1, +S2. Absent: diastolic murmur, gallop, rubs, systolic murmur - GI/Abdominal GI/Abdominal exam: Present: normal bowel sounds, soft, no peritoneal signs. Absent: distended, tenderness - Extremities Exam Extremities exam: Present: warm, radial pulses palpable and symmetrical. Absent : calf tenderness, cyanotic, pedal edema - Neurological Exam Neurological exam: Present: CN II-XII intact, oriented X3, no focal deficits. Absent: pronater drift, facial droop, speech deficit - Skin Skin exam: Present: dry, intact Internal Medicine: Result - Labs CBC & Chem 7: 10/31/16 05:00 10/31/16 05:00 Labs: Short CBC 10/31/16 Range/Units 05:00 WBC 5.6 (4.3-11.1) K/mcL Hgb 10.5 L (11.5-15.4) g/dL Hct 33.9 L (35.3-44.9) % Plt Count 237 (140-400) K/mcL Neutrophils # 4.7 (1.6-8.9) K/mcL BMP 10/31/16 05:00 Sodium 140 Potassium 4.2 Chloride 94 L Carbon Dioxide 38 H BUN 14 Creatinine 0.60 Glucose 255 H Calcium 9.3 Liver Function 10/31/16 Range/Units 05:00 Total Bilirubin 0.3 (0.2-1.2) mg/dL AST 19 (5-34) Units/L ALT 19 (0-55) Units/L Alkaline Phosphatase 40 (38-126) Units/L Albumin 3.1 L (3.5-5.0) g/dL - ABG Interpretation ABG results: ABG ABG pH 7.36 pH Units (7.32-7.45) 10/31/16 08:48 ABG pCO2 77 mmHg (35-45) H* 10/31/16 08:48 ABG pO2 71 mmHg (85-104) L 10/31/16 08:48 ABG O2 Saturation 93 % (95-98) L 10/31/16 08:48 PT/INR, D-dimer PT 11.1 Seconds (9.4-12.1) 10/30/16 14:24 Consult Discharge Plan - Plan Referrals: Joseph Chapin MD [Primary Care Provider] - 11/07/16 11:00 am
[2016-10-31] MEDS: methylPREDNISolone 125 MG/2 ML VIAL IVP SCH ×2 (17:55→20:51)
[2016-10-31] MEDS: Azithromycin 500 MG in D5% in Water 250 ML IVPB SCH (20:51)
[2016-10-31] MEDS: ALPRAZolam 0.25 MG TABLET PO PRN (22:56)
[2016-11-01] MEDS: Ipratropium/Albuterol Neb 3 ML IH SCH ×6 (04:19→23:31)
[2016-11-01] MEDS: methylPREDNISolone 125 MG/2 ML VIAL IVP SCH ×3 (05:14→20:33)
[2016-11-01] MEDS: *HR* Enoxaparin 40 MG/0.4 ML SYRINGE SQ SCH (05:14)
[2016-11-01] MEDS: (Roflumilast [Daliresp] 500 MCG) PO SCH (08:41)
[2016-11-01] MEDS: Insulin LISPRO 300 UNITS/3 ML VIAL SQ SCH ×4 (08:42→20:33)
--- NOTE | 2016-11-01 11:31 | Internal Med Progress Note ---
Date of Encounter: 11/01/16 Time of Encounter: 11:31 - Assessment and plan (1) Acute respiratory failure with hypercapnia Current Visit: Yes Status: Acute (2) Acute exacerbation of chronic obstructive pulmonary disease (COPD) Current Visit: Yes Status: Acute (3) Diabetes Current Visit: Yes Status: Acute Qualifiers: Diabetes mellitus type: type 2 Diabetes mellitus complication status: without complication Qualified Code(s): E11.9 - Type 2 diabetes mellitus without complications (4) Hypertension Current Visit: No Status: Chronic Qualifiers: Hypertension type: essential hypertension Qualified Code(s): I10 - Essential (primary) hypertension (5) Cancer of right breast, stage 2 Current Visit: Yes Status: Chronic (6) DVT prophylaxis Current Visit: Yes Status: Acute - Subjective Interval history: Ms. Crisostomo is a 66 year old female DM, COPD, emphysema, HTN, breast cancer, and recent cancer in the lymph nodes surrounding the breast. She reports to [facility] with increasing shortness of breath. Patient is admitted for acute hypercapnic respiratory failure due to COPD exacerbation. She is on BiPAP. I have increased her steroids and some theophylline continue nebulizers and antibiotics. She may take 3-4 days to improve. Patient has underlying diabetes hypertension dyslipidemia and home medication will be continued. Daily blood pressure and glucose monitoring. She has a breast cancer and she is going through chemotherapy but she is not neutropenic. Pulmonology is consulted to see if she can use BiPAP at home. - Constitutional Vitals: Temp Pulse Resp BP Pulse Ox 97.9 F 74 16 94/73 97 11/01/16 10:38 11/01/16 10:38 11/01/16 11:00 11/01/16 10:38 11/01/16 11:00 General appearance: Present: mild distress, A&O X 3, obese - Head Head exam: Present: atraumatic, normocephalic - Eye Eye exam: Present: PERRL, conjuntiva pink, sclera anicteric Pupils: Present: PERRL - Neck Neck exam general surgery: Present: supple, trachea midline. Absent: lymphadenopathy - Respiratory Respiratory exam: Present: CTAB, wheezes. Absent: accessory muscle use, rales, rhonchi - Cardiovascular Cardiovascular exam: Present: RRR, +S1, +S2. Absent: diastolic murmur, gallop, rubs, systolic murmur - GI/Abdominal GI/Abdominal exam: Present: normal bowel sounds, soft, no peritoneal signs. Absent: distended, tenderness - Extremities Exam Extremities exam: Present: warm, radial pulses palpable and symmetrical. Absent : calf tenderness, cyanotic, pedal edema - Neurological Exam Neurological exam: Present: CN II-XII intact, oriented X3, no focal deficits. Absent: pronater drift, facial droop, speech deficit - Skin Skin exam: Present: dry, intact Internal Medicine: Result - Labs CBC & Chem 7: 10/31/16 05:00 10/31/16 05:00 - ABG Interpretation ABG results: ABG ABG pH 7.36 pH Units (7.32-7.45) 10/31/16 08:48 ABG pCO2 77 mmHg (35-45) H* 10/31/16 08:48 ABG pO2 71 mmHg (85-104) L 10/31/16 08:48 ABG O2 Saturation 93 % (95-98) L 10/31/16 08:48 PT/INR, D-dimer PT 11.1 Seconds (9.4-12.1) 10/30/16 14:24 Consult Discharge Plan - Plan Referrals: Joseph Chapin MD [Primary Care Provider] - 11/07/16 11:00 am
--- NOTE | 2016-11-01 14:25 | Pulmonology Consult Note ---
Date of Encounter: 11/01/16 Time of Encounter: 14:25 Assessment and Plan (1) Acute respiratory failure with hypercapnia Current Visit: Yes Status: Acute 58-year-old woman who presented with acute on chronic hypoxic hypercarbic respiratory failure secondary to COPD exacerbation likely complicated by heart failure with preserved ejection fraction. She has very poor functional status and at baseline has what we would determine his end-stage COPD with FEV1 less than 23% and essentially no exercise tolerance. As an outpatient her regimen is a nebulized steroid nebulized long-acting beta agonist and Spiriva. She also was at least at last clinic visit taking Daliresp for recurrent COPD exacerbations with her Gold stage IV D disease. I am concerned that some of her symptomatology may be related to increased diastolic filling pressures which may benefit from diuresis although. I do not see any evidence for acute pneumonia. Fortunately she also suffers from breast cancer with is being managed at the cancer center it is quite possible that her lung function will deteriorate causing her demise before her breast cancer per my understanding of her disease. Recs: -Please send sputum culture if she is able to produce anything -I have added her nebulized home regimen of bronchodilators. -I have checked a BNP and would advocate a trial of IV Lasix 20 mg to see if this improves her symptomatology -I agree with azithromycin and IV steroid for COPD exacerbation with a caveat that IV methylprednisolone of 80 mg may be a bit much for her to see reason to go above 40 mg IV 3 times a day. With plan to transition to enteral formulation in the next 48 hours. Without clear evidence of pneumonia I would stop ceftriaxone -On balance while there is conflicting data regarding the use of N- acetylcysteine in this population I would advocate for its oral use as opposed to theophylline given side effect profile and other comorbid illnesses although. Theophylline may be beneficial if there is no resolution her dyspnea but I would like to trial this in the outpatient setting if needed. -.Continue aggressive bronchopulmonary toileting I would add on Acapella therapy at least 3 times a day incentive spirometry out of bed to chair and ambulation and to this and should be an excellent candidate for pulmonary rehabilitation when discharged from the hospital although in the past she has had transportation issues that have stymied this opportunity -Continue supplemental oxygen to keep saturation greater than 89% at all times based on ABG she should qualify for noninvasive ventilation that she go home with it appears that this does allow her to sleep better at night although there is conflicting data regarding the use of noninvasive ventilation for chronic CO2 retention (we may repeat PSG as outpatient) in COPD but if symptomatically if it improves her current condition I think that is fine and she could be discharged to go home with this likely she would only need modest setting such as empiric 02/11 and I will discuss this with the respiratory therapist -Chemical DVT prophylaxis unless contraindication arises (2) Heart failure with preserved ejection fraction Current Visit: Yes Status: Acute (3) Pulmonary hypertension Current Visit: Yes Status: Acute (4) DVT prophylaxis Current Visit: Yes Status: Acute (5) Hypoxemic respiratory failure, chronic Current Visit: No Status: Chronic (6) Acute exacerbation of chronic obstructive pulmonary disease (COPD) Current Visit: Yes Status: Acute History of Present Illness Consult date: 11/01/16 Requesting physician: Kendall Andrade Reason for consult: hypoxemia Chief complaint: Shortness of breath History of present illness: Very pleasant 66-year-old woman with past medical history of breast cancer undergoing chemotherapy she also has advanced COPD and was a former smoker now in remission chronic respiratory failure requiring 4 L liters oxygen at all time morbid obesity although she has had a sleep study in the past without evidence of sleep disordered breathing. Patient well known to me as I follow her in clinic. She presented with increased shortness of breath and really has not recovered since about of pneumonia approximately 2 months ago. On presentation here is been more dyspneic with more cough denies fever chills or weight loss she has been extremely fatigued and has low exercise capacity becomes extremely dyspneic with even minor activities. She denies hemoptysis. CT was performed on admission was negative for filling defect are clear evidence of infiltrate she does have chronic evidence of bronchitis. Physical admission she has been treated with COPD exacerbations with azithromycin and steroids along with bronchodilators I see she is also been given theophylline. Past Med Surg Social Fam HX - Past Medical History Medical history: cancer, COPD, diabetes, hypertension Psychiatric history: no psych history - Past Surgical History Surgical History: cholecystectomy - Social History Smoking Status: Former smoker Smokeless Tobacco Status: No Alcohol use: none Drug use: none - Family History Father Living Status: Cause of : CVA Mother Family Member Ethnicity: Non- Living Status: Hx Family Cardiac Disorders: Yes Hx Family Respiratory Disorders: No Hx Family Cancer: No Hx Family GI Disorders: No Hx Family Endocrine Disorder: No Hx Family Neuromuscular Disorders: No Hx Family Neurologic Disorders: No Hx Family HEENT Disorders: No Hx Family Autoimmune Disorders: No Brother Living Status: Still Living Hx Family Cardiac Disorders: Yes Hx Family Respiratory Disorders: No Hx Family Cancer: No Hx Family GI Disorders: No Hx Family Endocrine Disorder: No Hx Family Neuromuscular Disorders: No Hx Family Neurologic Disorders: No Hx Family HEENT Disorders: No Hx Family Autoimmune Disorders: No Medications and Allergies RX: Albuterol Sulfate [Albuterol Inhaler] 2 puff IH Q4HR PRN 01/26/15 [History] RX: Calcium Carbonate/Vitamin D3 [Calcium 600-Vit D3 800 Tablet] 1 each PO DAILY 01/26/15 [History] RX: Formoterol Fumarate [Perforomist] 20 mcg IH PRN PRN 01/26/15 [History] RX: GlipiZIDE [Glucotrol] 10 mg PO 0800 01/26/15 [History] RX: Losartan [Cozaar] 50 mg PO DAILY 01/26/15 [History] RX: Montelukast [Singulair] 10 mg PO DAILY 01/26/15 [History] RX: Omeprazole [PriLOSEC] 20 mg PO DAILY 01/26/15 [History] RX: Potassium Chloride [Klor-Con Sprinkle] 10 meq PO DAILY 01/26/15 [History] RX: Roflumilast [Daliresp] 500 mcg PO DAILY 01/26/15 [History] RX: Tiotropium [Spiriva] 18 mcg IH DAILY 01/26/15 [History] RX: Triamterene/HCTZ 37.5/25mg [Dyazide] 1 each PO DAILY 01/26/15 [History] RX: Vitamin E (Dl,Tocopheryl Acet) [Vitamin E] 400 unit PO DAILY 01/26/15 [ History] Budesonide Neb [Pulmicort Neb] 0.5 mg IH BIDR 06/26/16 [History] RX: Oxygen 1 each .ROUTE AD 07/09/16 [History] HYDROcodone/Acet 10/325 mg [[place] 10-325 mg] 1 tab PO Q6HR PRN #56 tab 07/12/16 [Rx] Pravastatin Sodium [Pravachol] 40 mg PO DAILY 07/12/16 [History] PredniSONE [Deltasone] 20 mg PO PRN PRN 07/12/16 [History] Pantoprazole Sodium [Protonix] 40 mg PO DAILY #30 tablet. 10/01/16 [Rx] RX: Metoclopramide HCl 5 mg PO ACHS #60 tablet 10/01/16 [Rx] 3 Allergy/AdvReac Type Severity Reaction Status Date / Time fluticasone Allergy Blister Verified 10/01/16 12:31 [From Advair Diskus] salmeterol Allergy Blister Verified 10/01/16 12:31 [From Advair Diskus] All Systems: A 10-system review of systems was performed and is negative for pertinent findings except as documented above in the HPI. Physical Examination Vital Signs: Vital Signs, Last 4 Hours Temp Pulse Resp BP Pulse Ox 11/01/16 11:00 16 97 11/01/16 10:38 97.9 F 74 14 94/73 96 General appearance: no acute distress Eyes: nonicteric ENT: oropharynx moist Effort: mildly labored Auscultation: bilateral: wheezes, rales Cardiovascular: regular rate and rhythm Gastrointestinal: normoactive bowel sounds Integumentary: normal Extremities: edema Musculoskeletal: no deformities normal mental status, non-focal exam mood appropriate Results - Laboratory Findings CBC and BMP: 10/31/16 05:00 10/31/16 05:00 ABG ABG pH 7.36 pH Units (7.32-7.45) 10/31/16 08:48 ABG pCO2 77 mmHg (35-45) H* 10/31/16 08:48 ABG pO2 71 mmHg (85-104) L 10/31/16 08:48 ABG O2 Saturation 93 % (95-98) L 10/31/16 08:48 PT/INR, D-dimer PT 11.1 Seconds (9.4-12.1) 10/30/16 14:24 Abnormal lab findings: Abnormal lab results RBC 3.75 M/mcL (3.82-4.97) L 10/31/16 05:00 Hgb 10.5 g/dL (11.5-15.4) L 10/31/16 05:00 Hct 33.9 % (35.3-44.9) L 10/31/16 05:00 MCHC 31.0 g/dL (31.6-35.5) L 10/31/16 05:00 RDW 15.9 % (11.5-14.5) H 10/31/16 05:00 ABG pCO2 77 mmHg (35-45) H* 10/31/16 08:48 ABG pO2 71 mmHg (85-104) L 10/31/16 08:48 ABG HCO3 43.5 mEQ/L (21-27) H 10/31/16 08:48 ABG Total CO2 45.9 mEq/L (20-26) H 10/31/16 08:48 ABG O2 Saturation 93 % (95-98) L 10/31/16 08:48 ABG Base Excess 15.1 mEq/L (-2.0 to 3.0) H 10/31/16 08:48 Chloride 94 mEq/L (98-109) L 10/31/16 05:00 Carbon Dioxide 38 mEq/L (19-29) H 10/31/16 05:00 Glucose 255 mg/dL (70-99) H 10/31/16 05:00 POC Glucose 242 (58-89) H 10/31/16 20:01 Albumin 3.1 g/dL (3.5-5.0) L 10/31/16 05:00 Albumin/Globulin Ratio 1.0 (1.1-2.2) L 10/31/16 05:00 Ur Leukocyte Esterase Trace (Negative) H 10/30/16 14:39 Ur Squamous Epith Cells Moderate per lpf (None-Few) H 10/30/16 14:39 Ur Culture Indicated? YES (NO) A 10/30/16 14:39 - Diagnostic Findings Chest x-ray: report reviewed, image reviewed CT scan - chest: report reviewed, image reviewed U/S of Legs: report reviewed PFT's: report reviewed - Clinical Findings Intake & Output: Intake & Output 10/31/16 11/01/16 11/01/16 23:59 07:59 15:59 Intake Total 220 / 220 600 / 600 Balance 220 / 220 600 / 600 Weight 78.5 kg Consult Discharge Plan - Plan Referrals: Joseph Chapin MD [Primary Care Provider] - 11/07/16 11:00 am
--- NOTE | 2016-11-01 18:03 | Electrocardiograph Report ---
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
[2016-11-01] MEDS: Budesonide Neb 0.5 MG/2 ML IH SCH ×2 (18:04→22:01)
[2016-11-01] MEDS: Tiotropium 18 MCG inhalation IH SCH (18:04)
[2016-11-01] MEDS: *HR* Acetylcysteine 20% 600 MG/3 ML ORAL SYRINGE PO SCH (20:32)
[2016-11-01] MEDS: Azithromycin 500 MG in D5% in Water 250 ML IVPB SCH (20:33)
[2016-11-01] MEDS: Sennosides/Docusate Sodium TABLET PO PRN (21:36)
[2016-11-01] MEDS: ALPRAZolam 0.25 MG TABLET PO PRN (23:19)
[2016-11-02] MEDS: Ipratropium/Albuterol Neb 3 ML IH SCH ×6 (04:16→23:06)
[2016-11-02] MEDS: *HR* Enoxaparin 40 MG/0.4 ML SYRINGE SQ SCH (05:12)
[2016-11-02] MEDS: methylPREDNISolone 125 MG/2 ML VIAL IVP SCH ×3 (05:12→17:45)
--- NOTE | 2016-11-02 06:33 | Pulmonology Progress Note ---
Date of Encounter: 11/02/16 Time of Encounter: 06:33 Assessment and Plan (1) Acute respiratory failure with hypercapnia Current Visit: Yes Status: Acute This is a woman with acute on chronic hypoxic hypercarbic respiratory failure complicated by end-stage COPD with acute exacerbation. Saws evidence of heart failure with preserved ejection fraction along with pulmonary hypertension which is secondary to date WHO group 2 and group 3 disease. She is being treated breast cancer with lymph node metastasis. Recs: Coronary qualification for noninvasive ventilation for COPD Continue supplemental oxygen keep saturation greater than 99% at all times Start low-dose diuretic regimen Complete course of azithromycin for COPD exacerbation Oral prednisone 40 mg to complete two-week taper Continue home bronchodilator regimen Continue home Daliresp Start NAC 600 mg twice a day Chemical DVT prophylaxis while inpatient Close follow-up with pulmonary at discharge and would be a good candidate for pulmonary rehabilitation going forward Please call with questions I discussed my recommendations directly with the primary hospitalist service (Dr Petit) (2) Heart failure with preserved ejection fraction Current Visit: Yes Status: Acute (3) Pulmonary hypertension Current Visit: Yes Status: Acute (4) DVT prophylaxis Current Visit: Yes Status: Acute (5) Hypoxemic respiratory failure, chronic Current Visit: No Status: Chronic (6) Acute exacerbation of chronic obstructive pulmonary disease (COPD) Current Visit: Yes Status: Acute Subjective Principal diagnosis: Acute on chronic hypoxic respiratory failure Interval history: She says that she feels marginally better today. She is not having any cough sitting up in bed were BiPAP overnight remains hemodynamically stable Objective PUL Vital signs: Last Vital Signs Temp 97.8 F 11/02/16 05:17 Pulse 99 11/02/16 05:17 Resp 17 11/02/16 05:17 BP 128/63 11/02/16 05:17 Pulse Ox 95 11/02/16 05:17 General appearance: no acute distress Eyes: nonicteric Effort: mildly labored Auscultation: bilateral: diminished breath sounds Cardiovascular: regular rate and rhythm Extremities: edema (Trace lower extremity edema) Results - Laboratory Findings CBC and BMP: 10/31/16 05:00 10/31/16 05:00 ABG ABG pH 7.36 pH Units (7.32-7.45) 10/31/16 08:48 ABG pCO2 77 mmHg (35-45) H* 10/31/16 08:48 ABG pO2 71 mmHg (85-104) L 10/31/16 08:48 ABG O2 Saturation 93 % (95-98) L 10/31/16 08:48 PT/INR, D-dimer PT 11.1 Seconds (9.4-12.1) 10/30/16 14:24 Abnormal lab findings: Abnormal lab results RBC 3.75 M/mcL (3.82-4.97) L 10/31/16 05:00 Hgb 10.5 g/dL (11.5-15.4) L 10/31/16 05:00 Hct 33.9 % (35.3-44.9) L 10/31/16 05:00 MCHC 31.0 g/dL (31.6-35.5) L 10/31/16 05:00 RDW 15.9 % (11.5-14.5) H 10/31/16 05:00 ABG pCO2 77 mmHg (35-45) H* 10/31/16 08:48 ABG pO2 71 mmHg (85-104) L 10/31/16 08:48 ABG HCO3 43.5 mEQ/L (21-27) H 10/31/16 08:48 ABG Total CO2 45.9 mEq/L (20-26) H 10/31/16 08:48 ABG O2 Saturation 93 % (95-98) L 10/31/16 08:48 ABG Base Excess 15.1 mEq/L (-2.0 to 3.0) H 10/31/16 08:48 Chloride 94 mEq/L (98-109) L 10/31/16 05:00 Carbon Dioxide 38 mEq/L (19-29) H 10/31/16 05:00 Glucose 255 mg/dL (70-99) H 10/31/16 05:00 POC Glucose 356 (58-89) H 11/01/16 10:42 B-Natriuretic Peptide 248 pg/mL (0-100) H 11/02/16 05:10 Albumin 3.1 g/dL (3.5-5.0) L 10/31/16 05:00 Albumin/Globulin Ratio 1.0 (1.1-2.2) L 10/31/16 05:00 Ur Leukocyte Esterase Trace (Negative) H 10/30/16 14:39 Ur Squamous Epith Cells Moderate per lpf (None-Few) H 10/30/16 14:39 Ur Culture Indicated? YES (NO) A 10/30/16 14:39 - Clinical Findings Intake & Output: Intake & Output 11/01/16 11/01/16 11/02/16 15:59 23:59 07:59 Intake Total 600 / 600 240 / 240 Balance 600 / 600 240 / 240 Weight 78.5 kg Consult Discharge Plan - Plan Referrals: Joseph Chapin MD [Primary Care Provider] - 11/07/16 11:00 am
[2016-11-02] MEDS: Budesonide Neb 0.5 MG/2 ML IH SCH ×2 (07:43→19:42)
[2016-11-02] MEDS: (Roflumilast [Daliresp] 500 MCG) PO SCH (08:57)
[2016-11-02] MEDS: Insulin LISPRO 300 UNITS/3 ML VIAL SQ SCH ×3 (08:58→17:46)
[2016-11-02] MEDS: Tiotropium 18 MCG inhalation IH SCH (09:37)
[2016-11-02] MEDS: *HR* Acetylcysteine 20% 600 MG/3 ML ORAL SYRINGE PO SCH (09:50)
--- NOTE | 2016-11-02 10:22 | Internal Med Progress Note ---
Date of Encounter: 11/02/16 Time of Encounter: 09:45 - Assessment and plan (1) Acute exacerbation of chronic obstructive pulmonary disease (COPD) Current Visit: Yes Status: Acute Assessment and plan: Change azithromycin to by mouth route. Discontinue Rocephin as the patient does not have any evidence of pneumonia. Case discussed with pulmonology. Continue breathing treatments. Reduce the dose of steroids. Continue Mucinex. Theophylline has been discussing it. Patient be discharged home on Mucinex when she is ready for discharge. Overnight oximetry study for BiPAP qualification tonight. Once the BiPAP is set up at home, she can be discharged home with the same with a tapering dose of by mouth steroids. Patient is high risk due to need for home BiPAP to be set up prior to discharge home to avoid recurrent admissions and exacerbations of COPD. (2) Respiratory failure Current Visit: Yes Status: Chronic Assessment and plan: Patient uses 5-6 L of oxygen at home all the time. Her ABG reveals hypercapnia. Home BiPAP to be set up once she has qualification study done. Case discussed with pulmonology. Appreciate input and assistance. Qualifiers: Chronicity: chronic Respiratory failure complication: hypoxia and hypercapnia Qualified Code(s): J96.11 - Chronic respiratory failure with hypoxia; J96.12 - Chronic respiratory failure with hypercapnia (3) Diabetes Current Visit: Yes Status: Chronic Assessment and plan: Completed by hyperglycemia likely related to steroids. Patient's Side will be resumed. She will be placed on metformin. Continue sliding scale and stent. Diabetic diet. If the sugars remain elevated, patient may be placed on basal insulin while she is on steroids. 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 No indication for diuresis now. Qualifiers: Congestive heart failure type: diastolic Congestive heart failure chronicity: chronic Qualified Code(s): I50.32 - Chronic diastolic (congestive ) heart failure (5) Hypertension Current Visit: Yes Status: Chronic Assessment and plan: Controlled blood pressure. Continue home medications. Qualifiers: Hypertension type: essential hypertension Qualified Code(s): I10 - Essential (primary) hypertension - Subjective Interval history: Patient states that her breathing is better. She continues to report shortness of breath with exertion. She reports cough and minimal wheezing. She states that she uses 5-6 L of oxygen at home all the time. She does not have a CPAP/ BiPAP at home. She did not get the BiPAP qualification overnight oximetry performed last night. She denies any nausea or vomiting. - Constitutional Vitals: Temp Pulse Resp BP Pulse Ox 97.7 F 92 17 140/89 95 11/02/16 06:39 11/02/16 06:39 11/02/16 07:43 11/02/16 06:39 11/02/16 07:43 General appearance: Present: mild distress, A&O X 3, obese Exam: Gen.: Sitting in bed. Moderate respiratory distress. Chest: Reduced breath sounds bilaterally. CVS: First and second heart sounds present. No murmurs, rubs or gallops. Abdomen: Soft, nontender, obese. Bowel sounds present. No hepatosplenomegaly. Skin: No decubitus ulcers appreciated. Internal Medicine: Result - Labs CBC & Chem 7: 10/31/16 05:00 10/31/16 05:00 - ABG Interpretation ABG results: ABG ABG pH 7.36 pH Units (7.32-7.45) 10/31/16 08:48 ABG pCO2 77 mmHg (35-45) H* 10/31/16 08:48 ABG pO2 71 mmHg (85-104) L 10/31/16 08:48 ABG O2 Saturation 93 % (95-98) L 10/31/16 08:48 PT/INR, D-dimer PT 11.1 Seconds (9.4-12.1) 10/30/16 14:24 - Impressions Case discussed with pulmonology Consult Discharge Plan - Plan Referrals: Joseph Chapin MD [Primary Care Provider] - 11/07/16 11:00 am
[2016-11-02] MEDS: Azithromycin 250 MG TABLET PO SCH (14:00)
[2016-11-02] MEDS: *HR* GlipiZIDE 5 MG TABLET PO SCH (14:01)
[2016-11-02] MEDS: *HR* Metformin 500 MG TABLET PO SCH (17:45)
[2016-11-03] MEDS: Insulin LISPRO 300 UNITS/3 ML VIAL SQ SCH ×3 (00:26→12:23)
[2016-11-03] MEDS: *HR* Acetylcysteine 20% 600 MG/3 ML ORAL SYRINGE PO SCH (00:27)
[2016-11-03] MEDS: methylPREDNISolone 125 MG/2 ML VIAL IVP SCH (03:07)
[2016-11-03] MEDS: Ipratropium/Albuterol Neb 3 ML IH SCH ×5 (03:42→15:23)
[2016-11-03] MEDS: *HR* Enoxaparin 40 MG/0.4 ML SYRINGE SQ SCH (05:12)
[2016-11-03 06:15] LABS: ABG Base Excess 19.1 mEq/L (-2.0 to 3.0); ABG HCO3 45.9 mEQ/L (21-27); ABG Oxygen Saturation 98 % (95-98); ABG PCO2 63 mmHg (35-45); ABG PH 7.47 pH Units (7.32-7.45); ABG PO2 96 mmHg (85-104); ABG TCO2 47.8 mEq/L (20-26); Blood Gas FiO2 28 %
[2016-11-03] MEDS: Budesonide Neb 0.5 MG/2 ML IH SCH (07:37)
[2016-11-03] MEDS: Tiotropium 18 MCG inhalation IH SCH (07:39)
[2016-11-03] MEDS: *HR* GlipiZIDE 5 MG TABLET PO SCH (08:04)
[2016-11-03] MEDS: *HR* Metformin 500 MG TABLET PO SCH (08:05)
[2016-11-03] MEDS: (Roflumilast [Daliresp] 500 MCG) PO SCH (08:05)
[2016-11-03] MEDS: Sennosides/Docusate Sodium TABLET PO PRN (08:18)
[2016-11-03] MEDS ORDERED: predniSONE 20 MG TABLET PO SCH (09:00)
--- NOTE | 2016-11-03 09:19 | Discharge Summary ---
Date of Encounter: 11/03/16 Time of Encounter: 08:00 - Discharge Diagnosis (1) Acute exacerbation of chronic obstructive pulmonary disease (COPD) Priority: Primary Status: Acute (2) Respiratory failure Priority: Secondary Status: Chronic Qualifiers: Chronicity: chronic Respiratory failure complication: hypoxia and hypercapnia Qualified Code(s): J96.11 - Chronic respiratory failure with hypoxia; J96.12 - Chronic respiratory failure with hypercapnia (3) Diabetes Priority: Secondary Status: Chronic Qualifiers: Diabetes mellitus type: type 2 Diabetes mellitus complication status: with hyperglycemia 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 insulin 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: without detention use Qualified Code(s): E11.65 - Type 2 diabetes mellitus with hyperglycemia (4) CHF (congestive heart failure) Priority: Secondary Status: Chronic Qualifiers: Congestive heart failure type: diastolic Congestive heart failure chronicity: chronic Qualified Code(s): I50.32 - Chronic diastolic (congestive ) heart failure (5) Hypertension Priority: Secondary Status: Chronic Qualifiers: Hypertension type: essential hypertension Qualified Code(s): I10 - Essential (primary) hypertension - Discharge Medications Prescriptions: Acetylcysteine [V-Xndctz-n-Cysteine] 600 mg PO BID #120 capsule predniSONE [PredniSONE] 20 mg PO AD #20 tablet Home Medications: Albuterol Sulfate [Albuterol Inhaler] 2 puff IH Q4HR PRN 01/26/15 [History] Calcium Carbonate/Vitamin D3 [Calcium 600-Vit D3 800 Tablet] 1 each PO DAILY [History] Formoterol Fumarate [Perforomist] 20 mcg IH PRN PRN 01/26/15 [History] GlipiZIDE [Glucotrol] 10 mg PO 0800 01/26/15 [History] Losartan [Cozaar] 50 mg PO DAILY 01/26/15 [History] Montelukast [Singulair] 10 mg PO DAILY 01/26/15 [History] Omeprazole [PriLOSEC] 20 mg PO DAILY 01/26/15 [History] Potassium Chloride [Klor-Con Sprinkle] 10 meq PO DAILY 01/26/15 [History] Roflumilast [Daliresp] 500 mcg PO DAILY 01/26/15 [History] Tiotropium [Spiriva] 18 mcg IH DAILY 01/26/15 [History] Triamterene/HCTZ 37.5/25mg [Dyazide] 1 each PO DAILY 01/26/15 [History] Vitamin E (Dl,Tocopheryl Acet) [Vitamin E] 400 unit PO DAILY 01/26/15 [History] Budesonide Neb [Pulmicort Neb] 0.5 mg IH BIDR 06/26/16 [History] Oxygen 1 each .ROUTE AD 07/09/16 [History] HYDROcodone/Acet 10/325 mg [[place] 10-325 mg] 1 tab PO Q6HR PRN #56 tab 07/12/16 [Rx] Pravastatin Sodium [Pravachol] 40 mg PO DAILY 07/12/16 [History] Metoclopramide HCl 5 mg PO ACHS #60 tablet 10/01/16 [Rx] Pantoprazole Sodium [Protonix] 40 mg PO DAILY #30 tablet. 10/01/16 [Rx] Acetylcysteine [B-Qljbtf-y-Cysteine] 600 mg PO BID #120 capsule 11/03/16 [Rx] predniSONE [PredniSONE] 20 mg PO AD #20 tablet 11/03/16 [Rx] Allergies/Adverse Reactions: 3 Allergy/AdvReac Type Severity Reaction Status Date / Time fluticasone Allergy Blister Verified 10/01/16 12:31 [From Advair Diskus] salmeterol Allergy Blister Verified 10/01/16 12:31 [From Advair Diskus] Procedures/tests Complete & Pending: Procedures Performed prior 72 hours Category Date Time Status ECG 12 lead ECG [ECG] Routine Y 10/31/16 18:13 Completed Date of admission: 10/30/16 17:08 Primary care physician: Joseph Chapin MD Consults: 11/01/16 14:41 Consult to Pulmonology [CONS] Routine Consulting Provider: [facility] [place] Reason for Consult: Dyspnea Time Notified: 14:41 Call Completed: Yes Discharging clinician: Ambrose Petit Anticipated date of discharge: 11/03/16 - Patient Status Disposition: Home Health Service Condition: Fair Functional capacity at discharge: uses cane/walker Overall status at discharge: patient is progressing back to baseline - Discharge Instructions Follow Up With: Joseph Chapin MD [Primary Care Provider] - 11/07/16 11:00 am - Diet and Activity Activity: as per physical therapy, increase activity as tolerated, wear oxygen at all times Diet: diabetic diet, low salt diet Hospital course: Ms. Crisostomo is a 66 year old female with a history of diabetes mellitus, COPD, breast cancer who presented to the emergency room due to increasing shortness of breath. The patient was found to have COPD exacerbation. She was admitted to the hospital for the same. Pulmonology was consulted. She was placed on antibiotics and intravenous steroids. Her COPD exacerbation improved with conservative management. She was also placed on BiPAP. ABG revealed hypercapnia and hypoxia. Pulmonology recommended that the patient would benefit from outpatient BiPAP therapy. Hence, she underwent overnight pulse oximetry to qualify her for BiPAP. When she slept with 3 L of oxygen, she spent 42 minutes less than 88% of oxygen. Hence, she qualifies for BiPAP. The patient has been set up with BiPAP at home. She has finished a course of antibiotic therapy for her COPD is a patient. She is being given a slow taper of steroids to take home. She has also been started on NAC. - Time Spent with Patient Total time spent providing and/or coordinating discharge services: Greater than 30 minutes (40 min) - Constitutional Vitals: Temp Pulse Resp BP Pulse Ox 98.7 F 93 17 137/84 96 11/03/16 06:49 11/03/16 06:49 11/03/16 07:39 11/03/16 06:49 11/03/16 07:39 General appearance: Present: mild distress, A&O X 3, obese Exam: Gen.: Sitting in bed. No acute distress. Chest: Reduced air entry bilaterally CVS: First and second heart sounds present. No murmurs, rubs or gallops. Abdomen: Soft, nontender, nondistended. Bowel sounds present. No hepatosplenomegaly.
--- NOTE | 2016-11-03 09:26 | Physician Discharge Referral ---
Home Health/Hosp Referral Info Transfer to: Home Health Attending Provider: Dr. Ambrose Petit Provider in Charge Post Discharge: PCP - Diagnosis (1) Acute exacerbation of chronic obstructive pulmonary disease (COPD) Priority: Primary Status: Acute (2) Respiratory failure Priority: Secondary Status: Chronic (3) Diabetes Priority: Secondary Status: Chronic (4) CHF (congestive heart failure) Priority: Secondary Status: Chronic (5) Hypertension Priority: Secondary Status: Chronic - Respiratory Orders Oxygen / L per min (3) Smoking Cessation: Smoking cessation has been advised. For more information, call the [place] Tobacco Quit Line at 6-335-SQNL-NOW. - Diet/Nutrition Diet/Nutrition Orders: No Added Salt (TITA), No Concentrated Sweets - Activity Activity Orders: Up ad rafiq, Ambulate, Walker - Services Needed Following services are medically necessary services: Home Health Aide, Physical Therapy - Transfer Medications Prescriptions: Acetylcysteine [I-Sbxucl-c-Cysteine] 600 mg PO BID #120 capsule predniSONE [PredniSONE] 20 mg PO AD #20 tablet Home Medications: Albuterol Sulfate [Albuterol Inhaler] 2 puff IH Q4HR PRN 01/26/15 [History] Calcium Carbonate/Vitamin D3 [Calcium 600-Vit D3 800 Tablet] 1 each PO DAILY [History] Formoterol Fumarate [Perforomist] 20 mcg IH PRN PRN 01/26/15 [History] GlipiZIDE [Glucotrol] 10 mg PO 0800 01/26/15 [History] Losartan [Cozaar] 50 mg PO DAILY 01/26/15 [History] Montelukast [Singulair] 10 mg PO DAILY 01/26/15 [History] Omeprazole [PriLOSEC] 20 mg PO DAILY 01/26/15 [History] Potassium Chloride [Klor-Con Sprinkle] 10 meq PO DAILY 01/26/15 [History] Roflumilast [Daliresp] 500 mcg PO DAILY 01/26/15 [History] Tiotropium [Spiriva] 18 mcg IH DAILY 01/26/15 [History] Triamterene/HCTZ 37.5/25mg [Dyazide] 1 each PO DAILY 01/26/15 [History] Vitamin E (Dl,Tocopheryl Acet) [Vitamin E] 400 unit PO DAILY 01/26/15 [History] Budesonide Neb [Pulmicort Neb] 0.5 mg IH BIDR 06/26/16 [History] Oxygen 1 each .ROUTE AD 07/09/16 [History] HYDROcodone/Acet 10/325 mg [[place] 10-325 mg] 1 tab PO Q6HR PRN #56 tab 07/12/16 [Rx] Pravastatin Sodium [Pravachol] 40 mg PO DAILY 07/12/16 [History] Metoclopramide HCl 5 mg PO ACHS #60 tablet 10/01/16 [Rx] Pantoprazole Sodium [Protonix] 40 mg PO DAILY #30 tablet. 10/01/16 [Rx] Acetylcysteine [T-Gzswcz-u-Cysteine] 600 mg PO BID #120 capsule 11/03/16 [Rx] predniSONE [PredniSONE] 20 mg PO AD #20 tablet 11/03/16 [Rx] Allergies/Adverse Reactions: 3 Allergy/AdvReac Type Severity Reaction Status Date / Time fluticasone Allergy Blister Verified 10/01/16 12:31 [From Advair Diskus] salmeterol Allergy Blister Verified 10/01/16 12:31 [From Advair Diskus] Certification: Further, I certify that my clinical findings support that this patient is homebound (i.e. absences from home require considerable and taxing effort and are for medical reasons or roman cath[employer] services or infrequently or short duration when for other reasons) because: Homebound Reason: Patient requires assistance of a person or device to safely leave home, Leaving home requires considerable and taxing effort due to condition Attestation: My signature below is to certify that this patient is under my care and that I, or nurse practitioner, or a physician's clinical trial assistant working with me, has a face-to -face encounter with this patient.
[2016-11-03 10:56] VITALS: BP 153/80
[2016-11-03] MEDS: Azithromycin 250 MG TABLET PO SCH (12:22)
== END 2016-11-03 03:30 | disposition home health service (06) | DRG 189 ==
LOC: EMEROO 13:42 → SUATTDRO 17:08 → 2NENU 17:08
PROVIDERS: ADMIT Nurse Practitioner Family; ATTEND Internal Medicine Sleep Medicine

== ENCOUNTER 2018-09-25 15:23 | Observation (INO) ==
[2018-09-25] MEDS ORDERED: Hyoscyamine SL 0.125 MG TAB.SUBL SL STA (15:48)
[2018-09-25] MEDS ORDERED: 0.9 % Sodium Chloride 500 ML IVC ONE (15:48)
[2018-09-25] MEDS ORDERED: Ondansetron 4 MG/2 ML VIAL IVP ONE (15:48)
--- NOTE | 2018-09-25 15:50 | Emergency Department Note ---
Disposition Clinical Impression: Elevated liver enzymes, Elevated bilirubin, MARIZA (acute kidney injury) Abdominal pain Qualifiers: Abdominal location: generalized Qualified Code(s): R10.84 - Generalized abdominal pain Disposition: Admitted As Inpatient Referrals: Joseph Chapin MD [Primary Care Provider] - Forms: ED Satisfaction Letter, Work/School Release Time of Disposition: 19:20 General Adult HPI - General Stated complaint: "chf" Time Seen by Provider: 09/25/18 15:29 Source: patient Limitations: no limitations - History of Present Illness Pain Scale: 9 - Related Data Home Medications Medication Instructions Recorded Confirmed Albuterol Sulfate [Albuterol 2 puff IH Q4HR PRN 01/26/15 09/19/18 Inhaler] Calcium Carbonate/Vitamin D3 1 each PO BID 01/26/15 09/19/18 [Calcium 600-Vit D3 800 Tablet] Formoterol Fumarate [Perforomist] 20 mcg IH PRN PRN 01/26/15 09/19/18 GlipiZIDE [Glucotrol] 10 mg PO BID 01/26/15 09/19/18 Losartan [Cozaar] 50 mg PO DAILY 01/26/15 09/19/18 Montelukast [Singulair] 10 mg PO DAILY 01/26/15 09/19/18 Potassium Chloride [Klor-Con 10 meq PO TID 01/26/15 09/19/18 Sprinkle] Roflumilast [Daliresp] 500 mcg PO DAILY 01/26/15 09/19/18 Tiotropium [Spiriva] 18 mcg IH DAILY 01/26/15 09/19/18 Triamterene/HCTZ 37.5/25mg 1 each PO DAILY 01/26/15 09/19/18 [Dyazide] Vitamin E (Dl,Tocopheryl Acet) 400 unit PO BID 01/26/15 09/19/18 [Vitamin E] Budesonide Neb [Pulmicort Neb] 0.5 mg IH BIDR 06/26/16 09/19/18 Oxygen 1 each .ROUTE AD 07/09/16 09/19/18 Pravastatin Sodium [Pravachol] 40 mg PO DAILY 07/12/16 09/19/18 Gabapentin [Neurontin] 400 mg PO TID PRN 08/02/17 09/19/18 hydrOXYzine HCl [Hydroxyzine HCl] 50 mg PO Q8H PRN 06/02/18 09/19/18 Metoprolol [Lopressor] 12.5 mg PO DAILY 08/06/18 09/19/18 Previous Rx's Medication Instructions Recorded Pantoprazole Sodium [Protonix] 40 mg PO DAILY #30 tablet. 12/04/16 Ondansetron [Zofran ODT] 8 mg SL Q12H PRN #20 tab 09/19/18 Allergies Allergy/AdvReac Type Severity Reaction Status Date / Time fluticasone Allergy Blister Verified 09/19/18 15:15 [From Advair Diskus] salmeterol Allergy Blister Verified 09/19/18 15:15 [From Advair Diskus] Past Medical History - Past Medical History Medical history: Reports: cancer, COPD, diabetes, hypertension Surgical history: Reports: cholecystectomy Psychiatric history: Reports: no psych history [employer] history: Reports: no [employer] history - Social History Smoking Status: Former smoker Smokeless Tobacco Status: No Alcohol use: Reports: none Drug use: Reports: none Physical Exam - General Limitations: no limitations General appearance: alert, in no apparent distress Course Vital Signs Temperature 97.4 F L 09/25/18 15:34 Pulse Rate 98 09/25/18 15:34 Respiratory Rate 18 09/25/18 15:34 Blood Pressure 98/62 09/25/18 15:34 O2 Sat by Pulse Oximetry 95 09/25/18 15:34 Temperature 97.4 F L 09/25/18 15:34 Pulse Rate 97 09/25/18 18:03 Respiratory Rate 18 09/25/18 18:03 Blood Pressure 93/46 09/25/18 18:03 O2 Sat by Pulse Oximetry 100 09/25/18 18:03 Oxygen Delivery Oxygen Delivery Nasal Cannula Medical Decision Making - Lab Data Result diagrams: 09/25/18 15:54 09/25/18 15:54 Lab Results 09/25/18 09/25/18 09/25/18 Range/Units 15:54 15:54 15:54 WBC 12.9 H (4.3-11.1) K/mcL RBC 4.39 (3.82-4.97) M/mcL Hgb 13.0 (11.5-15.4) g/dL Hct 38.8 (35.3-44.9) % MCV 88.4 (83.0-100.0) fL MCH 29.6 (28.0-33.3) pg MCHC 33.5 (31.6-35.5) g/dL RDW 17.9 H (11.5-14.5) % Plt Count 251 (140-400) K/mcL MPV 9.6 (9.4-12.4) fL Immature Gran % 0.7 (0-4) % Seg Neutrophils % 77.1 % Lymphocytes % 11.0 % Monocytes % 10.9 % Eosinophils % 0.1 % Basophils % 0.2 % Neutrophils # 9.9 H (1.6-8.9) K/mcL Lymphocytes # 1.4 (0.6-4.6) K/mcL Monocytes # 1.4 H (0.0-1.3) K/mcL Eosinophils # 0.0 (0.0-0.6) K/mcL Basophils # 0.0 (0.0-0.2) K/mcL Nucleated RBCs/100 WBC 0.3 H (0) /100 WBC PT 13.4 H (9.4-12.1) Seconds INR 1.2 Sodium 128 L (136-145) mEq/L Potassium 5.6 H (3.5-5.1) mEq/L Chloride 92 L (98-107) mEq/L Carbon Dioxide 22 L (23-29) mEq/L BUN 56 H (8-23) mg/dL Creatinine 2.56 H (0.60-1.20) mg/dL Est GFR ( Amer) 22 L (> 60) Est GFR (Non-Af Amer) 19 L (> 60) BUN/Creatinine Ratio 22 (6-26) Glucose 105 (70-105) mg/dL Calculated Osmolality 282 (280-300) Calcium 8.5 L (8.6-10.3) mg/dL Magnesium 2.4 (1.6-2.6) mg/dL Total Bilirubin 7.3 H (0.3-1.0) mg/dL AST 328 H (13-39) Units/L ALT 121 H (7-52) Units/L Alkaline Phosphatase 634 H (34-104) Units/L Ammonia (16-53) mcmol/L Troponin I 0.07 H* (< 0.04) ng/mL Serum Total Protein 5.7 L (6.4-8.9) g/dL Albumin 2.6 L (3.5-5.7) g/dL Globulin 3.1 (2.4-3.5) g/dL Albumin/Globulin Ratio 0.8 L (1.1-2.2) Lipase 63 (11-82) Units/L Urine Color (Yellow) Urine Clarity (Clear) Urine pH (5.0-8.0) pH Units Ur Specific [place] (1.010-1.025) Urine Protein (Neg-Trace) mg/dL Urine Glucose (UA) (Normal) mg/dL Urine Ketones (Negative) mg/dL Urine Blood (Negative) Urine Nitrite (Negative) Urine Bilirubin (Negative) Urine Urobilinogen (Normal) mg/dL Ur Leukocyte Esterase (Negative) Urine Microscopic RBC (0-3) per hpf Urine Microscopic WBC (0-3) per hpf Ur Squamous Epith Cells (None-Few) per lpf Urine Bacteria (None-Few) per hpf Ur Culture Indicated? (NO) 09/25/18 09/25/18 Range/Units 15:54 17:15 WBC (4.3-11.1) K/mcL RBC (3.82-4.97) M/mcL Hgb (11.5-15.4) g/dL Hct (35.3-44.9) % MCV (83.0-100.0) fL MCH (28.0-33.3) pg MCHC (31.6-35.5) g/dL RDW (11.5-14.5) % Plt Count (140-400) K/mcL MPV (9.4-12.4) fL Immature Gran % (0-4) % Seg Neutrophils % % Lymphocytes % % Monocytes % % Eosinophils % % Basophils % % Neutrophils # (1.6-8.9) K/mcL Lymphocytes # (0.6-4.6) K/mcL Monocytes # (0.0-1.3) K/mcL Eosinophils # (0.0-0.6) K/mcL Basophils # (0.0-0.2) K/mcL Nucleated RBCs/100 WBC (0) /100 WBC PT (9.4-12.1) Seconds INR Sodium (136-145) mEq/L Potassium (3.5-5.1) mEq/L Chloride (98-107) mEq/L Carbon Dioxide (23-29) mEq/L BUN (8-23) mg/dL Creatinine (0.60-1.20) mg/dL Est GFR ( Amer) (> 60) Est GFR (Non-Af Amer) (> 60) BUN/Creatinine Ratio (6-26) Glucose (70-105) mg/dL Calculated Osmolality (280-300) Calcium (8.6-10.3) mg/dL Magnesium (1.6-2.6) mg/dL Total Bilirubin (0.3-1.0) mg/dL AST (13-39) Units/L ALT (7-52) Units/L Alkaline Phosphatase (34-104) Units/L Ammonia 47 (16-53) mcmol/L Troponin I (< 0.04) ng/mL Serum Total Protein (6.4-8.9) g/dL Albumin (3.5-5.7) g/dL Globulin (2.4-3.5) g/dL Albumin/Globulin Ratio (1.1-2.2) Lipase (11-82) Units/L Urine Color [place] A (Yellow) Urine Clarity Cloudy A (Clear) Urine pH 5.0 (5.0-8.0) pH Units Ur Specific [place] 1.019 (1.010-1.025) Urine Protein Negative (Neg-Trace) mg/dL Urine Glucose (UA) Normal (Normal) mg/dL Urine Ketones Trace H (Negative) mg/dL Urine Blood Moderate H (Negative) Urine Nitrite Negative (Negative) Urine Bilirubin Large H (Negative) Urine Urobilinogen 2.0 H (Normal) mg/dL Ur Leukocyte Esterase Small H (Negative) Urine Microscopic RBC 0-3 (0-3) per hpf Urine Microscopic WBC 5-15 H (0-3) per hpf Ur Squamous Epith Cells Many H (None-Few) per lpf Urine Bacteria Many H (None-Few) per hpf Ur Culture Indicated? YES A (NO) Attestation Statement - Attestation Attestation: I examined this patient and my medical decision-making was reviewed with the Resident Physician. I agree with the documented findings, disposition and treatment plan as described except to the extent set forth below. Patient presents to the ED with a chief complaint of nausea, abdominal pain, unable to sleep. Patient's been having abdominal pain and swelling. She is seeing her oncologist. Should MRI of her liver that did not show any tumors. She continues to have pain. She states now she feels like she is having periods of BNP confused. Patient is status post unilateral mastectomy. On examination she is in no distress. She does have mid and upper abdominal tenderness. Plan. Bedside ultrasound was performed by Dr. Moran with my supervision. No large fluid pockets to suggest ascites. We will check a CT scan. Basic labs. Reviewed her LFTs from last week that were elevated. Her hepatitis profile was negative. We will discuss with GI. EKG was reviewed with the resident. No acute ischemic changes. Patient with worsening liver and kidney functions. She has been discussed with nephrology and GI who will see her in consult. She responded to fluid bolus. She possibly has a mild UTI. We gave her some Rocephin. I do not believe she is in septic shock. She is admitted to medicine. She is given an aspirin for her troponin which is likely demand ischemia.
[2018-09-25 16:10] LABS: Basophils % 0.2 %; Eosinophils % 0.1 %; Hematocrit 38.8 % (35.3-44.9); Immature Granulocytes % 0.7 % (0-4); Lymphocytes # 1.4 K/mcL (0.6-4.6); Mean Corpuscular HGB Conc 33.5 g/dL (31.6-35.5); Mean Corpuscular Hemoglobin 29.6 pg (28.0-33.3); Mean Corpuscular Volume 88.4 fL (83.0-100.0); Mean Platelet Volume 9.6 fL (9.4-12.4); Monocytes # 1.4 K/mcL (0.0-1.3); Monocytes % 10.9 %; Neutrophils # 9.9 K/mcL (1.6-8.9); Nucleated Red Blood Cells 0.3 /100 WBC (0); Platelet Count 251 K/mcL (140-400); Red Blood Count 4.39 M/mcL (3.82-4.97); Red Cell Distribution Width 17.9 % (11.5-14.5); Segmented Neutrophils % 77.1 %; White Blood Count 12.9 K/mcL (4.3-11.1)
--- NOTE | 2018-09-25 16:13 | Emergency Department Note ---
Disposition Clinical Impression: Elevated liver enzymes, Elevated bilirubin, MARIZA (acute kidney injury) Abdominal pain Qualifiers: Abdominal location: generalized Qualified Code(s): R10.84 - Generalized abdominal pain Disposition: Admitted As Inpatient Condition: Fair Forms: ED Satisfaction Letter, Work/School Release Time of Disposition: 19:20 Abdominal Pain HPI - General Chief Complaint: ED Abdominal Pain Stated Complaint: "chf" Time Seen by Provider: 09/25/18 15:29 Source: patient Mode of arrival: ambulatory Limitations: no limitations Nursing Notes Reviewed: Yes Vital Signs Reviewed: Yes - History of Present Illness HPI Narrative: 68-year-old female past medical history of breast cancer with right-sided mastectomy presents to the emergency department with abdominal bloating and abdominal pain. Patient states she has been seeing her oncologist for this bloating with a have done an MR of the liver which came back showing no acute lesions did do a CT which did show hepatic lesions otherwise no other complaints. She is having normal bowel movements she has been nauseous but has no vomiting. They have noticed some yellowing of the skin. She does not know any chest pain shortness of breath. She does have history COPD is always on 4 L oxygen as been unchanged. She has noticed increased swelling over the past month. She did have an echocardiogram that was done 2 weeks ago during the same swelling which showed no signs of CHF or heart failure. 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 She is no longer on chemotherapy at this time. Otherwise no other complaints. HAs been no fevers Pain Scale: 9 - Related Data Home Medications Medication Instructions Recorded Confirmed Albuterol Sulfate [Albuterol 2 puff IH Q4HR PRN 01/26/15 09/19/18 Inhaler] Calcium Carbonate/Vitamin D3 1 each PO BID 01/26/15 09/19/18 [Calcium 600-Vit D3 800 Tablet] Formoterol Fumarate [Perforomist] 20 mcg IH PRN PRN 01/26/15 09/19/18 GlipiZIDE [Glucotrol] 10 mg PO BID 01/26/15 09/19/18 Losartan [Cozaar] 50 mg PO DAILY 01/26/15 09/19/18 Montelukast [Singulair] 10 mg PO DAILY 01/26/15 09/19/18 Potassium Chloride [Klor-Con 10 meq PO TID 01/26/15 09/19/18 Sprinkle] Roflumilast [Daliresp] 500 mcg PO DAILY 01/26/15 09/19/18 Tiotropium [Spiriva] 18 mcg IH DAILY 01/26/15 09/19/18 Triamterene/HCTZ 37.5/25mg 1 each PO DAILY 01/26/15 09/19/18 [Dyazide] Vitamin E (Dl,Tocopheryl Acet) 400 unit PO BID 01/26/15 09/19/18 [Vitamin E] Budesonide Neb [Pulmicort Neb] 0.5 mg IH BIDR 06/26/16 09/19/18 Oxygen 1 each .ROUTE AD 07/09/16 09/19/18 Pravastatin Sodium [Pravachol] 40 mg PO DAILY 07/12/16 09/19/18 Gabapentin [Neurontin] 400 mg PO TID PRN 08/02/17 09/19/18 hydrOXYzine HCl [Hydroxyzine HCl] 50 mg PO Q8H PRN 06/02/18 09/19/18 Metoprolol [Lopressor] 12.5 mg PO DAILY 08/06/18 09/19/18 Previous Rx's Medication Instructions Recorded Pantoprazole Sodium [Protonix] 40 mg PO DAILY #30 tablet. 12/04/16 Ondansetron [Zofran ODT] 8 mg SL Q12H PRN #20 tab 09/19/18 Allergies Allergy/AdvReac Type Severity Reaction Status Date / Time fluticasone Allergy Blister Verified 09/19/18 15:15 [From Advair Diskus] salmeterol Allergy Blister Verified 09/19/18 15:15 [From Advair Diskus] All systems ED: reviewed and negative except as stated. Review of Systems: As Per HPI Abdominal Pain PMH - Past Medical History Medical history: Reports: cancer, COPD, diabetes, hypertension Female Surgical History: Reports: appendectomy, breast surgery, cholecystectomy PRACTICE MANAGEMENT CONSULTANT history: Reports: no PRACTICE MANAGEMENT CONSULTANT history Psychiatric history: Reports: no psych history - Social History Smoking status: Former smoker Alcohol use: Reports: none Drug use: Reports: none Physical Exam - General Limitations: no limitations General appearance: alert, in no apparent distress - Head Head exam: atraumatic, normocephalic, normal inspection - Eye Eye exam: Present: normal appearance, PERRL, EOMI - ENT ENT exam: normal exam, normal oropharynx, mucous membranes moist, other (There is no yellowing of the orbital mucous membranes but there is mild jaundice sublingually) - Neck Neck exam: Present: normal inspection, full ROM, trachea midline - Chest Chest inspection: Present: normal inspection, symmetric chest wall rise - Respiratory Respiratory exam: Present: normal lung sounds bilaterally - Cardiovascular Cardiovascular exam: Present: regular rate, normal rhythm, normal heart sounds - Abdominal Exam Abdominal exam: Present: soft, tenderness (Mild generalized abdominal tenderness), distention (Mild distention of the abdomen no signs of peritonitis), normal bowel sounds, other (Liver is palpable at least 4 fingerbreadths below the ribs). Absent: guarding, rebound, rigidity - Extremities Exam Extremities exam: Present: normal inspection, full ROM. Absent: tenderness, pedal edema - Back Exam Back exam: Present: normal inspection, full ROM. Absent: tenderness - Neurological Exam Neurological exam: Present: alert, oriented X3 - Skin Skin exam: Present: warm, dry, intact, normal color Course Course Narrative: This seems to be more like liver pathology causing her swelling. There is no signs of CHF. She has no shortness of breath. We will do troponin, CMP, CBC, lipase, ammonia will also get CT of the head and abdomen pelvis without contrast. We will give patient 500 mL of IV fluid. We will also give Levsin for her abdominal pain. Also give Zofran for nausea. Did do a bedside ultrasound of the abdomen looking for possible ascites there was no noticeable fluid collections in the hepatorenal or suprapubic spaces. No noticeable ascites seen on exam. - Consultations Consultation #1: Spoke with on-call GI doctor Yash who recommended admitting here with GI consultation as well as nephrology consultation. He said that he feels that he can deal with this in this facility. If patient worsens they will transfer at that time. He had no further recommendations other than just admission and they will consult in the morning. Time: 18:00 Consultation #2: Spoke with on-call nephrology Dr. Moran who had no further recognition this time but said that he will see the patient and help with her worsening kidney function. Time: 18:30 Vital Signs Temperature 97.4 F L 09/25/18 15:34 Pulse Rate 98 09/25/18 15:34 Respiratory Rate 18 09/25/18 15:34 Blood Pressure 98/62 09/25/18 15:34 O2 Sat by Pulse Oximetry 95 09/25/18 15:34 Temperature 97.4 F L 09/25/18 15:34 Pulse Rate 97 09/25/18 18:03 Respiratory Rate 18 09/25/18 18:03 Blood Pressure 93/46 09/25/18 18:03 O2 Sat by Pulse Oximetry 100 09/25/18 18:03 Oxygen Delivery Oxygen Delivery Nasal Cannula Abdominal Pain - MDM Narrative Medical decision making narrative: 68-year-old female presented to the emergency department complaining of worsening abdominal distention and pain. CT the abdomen and no acute findings but she did have abnormalities in her liver function tests as well as an elevated bilirubin as well as worsening kidney function with acute kidney injury does all worsen when compared labs done 6 days ago go. I did speak with both GI as well as nephrology recommended admission and they will consult. We did give patient 1.5 L of fluid to help with her AKA I and dehydration. Patient was initially hypotensive but responded well to these fluids is been normotensive since. Patient is comfort with this plan. Her CODE STATUS is full code for 5 days if she is on the ventilator not doing well than as when they will remove. DARIN's and he is okay with this plan. Spoke with the hospitalist who agreed to admit the patient to their service. Patient is admitted in fair condition. Abdomen/Pelvis CT 09/25/18 15:46 IMPRESSION: 1. Hepatic steatosis and hepatic surface nodularity suggesting hepatic cirrhosis. 2. Submucosal fat deposition within the colon suggesting chronic or recurrent inflammation. 3. Small amount of free fluid in the pelvis and mild mesenteric edema. Mild body wall edema present as well. 4. The endometrium is thickened for postmenopausal patient, measuring about 1 cm in thickness. Nonemergent pelvic ultrasound recommended for further evaluation. D/ : / 09/25/2018 17:41:56 Adrien Morrell MD / claribel Interpreting Provider: Adrien Morrell MD Chest X-Ray 09/25/18 15:46 IMPRESSION: Stable chest x-ray including stable enlargement of the central pulmonary arteries suggesting pulmonary arterial hypertension. No acute disease. D/ / Dwight Martinez MD / Dwight Martinez MD Interpreting Provider: Dwight Martinez MD Head CT 09/25/18 16:07 IMPRESSION: No acute intracranial abnormality. 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 D/ / Dwight Martinez MD / Dwight Martinez MD Interpreting Provider: Dwight Martinez MD - Medical Records Medical records reviewed: Yes I reviewed the patient's medical records. - Lab Data Lab results reviewed: Yes I reviewed the patient's lab results. Result diagrams: 09/25/18 15:54 09/25/18 15:54 Lab Results 09/25/18 09/25/18 09/25/18 Range/Units 15:54 15:54 15:54 WBC 12.9 H (4.3-11.1) K/mcL RBC 4.39 (3.82-4.97) M/mcL Hgb 13.0 (11.5-15.4) g/dL Hct 38.8 (35.3-44.9) % MCV 88.4 (83.0-100.0) fL MCH 29.6 (28.0-33.3) pg MCHC 33.5 (31.6-35.5) g/dL RDW 17.9 H (11.5-14.5) % Plt Count 251 (140-400) K/mcL MPV 9.6 (9.4-12.4) fL Immature Gran % 0.7 (0-4) % Seg Neutrophils % 77.1 % Lymphocytes % 11.0 % Monocytes % 10.9 % Eosinophils % 0.1 % Basophils % 0.2 % Neutrophils # 9.9 H (1.6-8.9) K/mcL Lymphocytes # 1.4 (0.6-4.6) K/mcL Monocytes # 1.4 H (0.0-1.3) K/mcL Eosinophils # 0.0 (0.0-0.6) K/mcL Basophils # 0.0 (0.0-0.2) K/mcL Nucleated RBCs/100 WBC 0.3 H (0) /100 WBC PT 13.4 H (9.4-12.1) Seconds INR 1.2 Sodium 128 L (136-145) mEq/L Potassium 5.6 H (3.5-5.1) mEq/L Chloride 92 L (98-107) mEq/L Carbon Dioxide 22 L (23-29) mEq/L BUN 56 H (8-23) mg/dL Creatinine 2.56 H (0.60-1.20) mg/dL Est GFR ( Amer) 22 L (> 60) Est GFR (Non-Af Amer) 19 L (> 60) BUN/Creatinine Ratio 22 (6-26) Glucose 105 (70-105) mg/dL Calculated Osmolality 282 (280-300) Calcium 8.5 L (8.6-10.3) mg/dL Magnesium 2.4 (1.6-2.6) mg/dL Total Bilirubin 7.3 H (0.3-1.0) mg/dL AST 328 H (13-39) Units/L ALT 121 H (7-52) Units/L Alkaline Phosphatase 634 H (34-104) Units/L Ammonia (16-53) mcmol/L Troponin I 0.07 H* (< 0.04) ng/mL Serum Total Protein 5.7 L (6.4-8.9) g/dL Albumin 2.6 L (3.5-5.7) g/dL Globulin 3.1 (2.4-3.5) g/dL Albumin/Globulin Ratio 0.8 L (1.1-2.2) Lipase 63 (11-82) Units/L Urine Color (Yellow) Urine Clarity (Clear) Urine pH (5.0-8.0) pH Units Ur Specific [place] (1.010-1.025) Urine Protein (Neg-Trace) mg/dL Urine Glucose (UA) (Normal) mg/dL Urine Ketones (Negative) mg/dL Urine Blood (Negative) Urine Nitrite (Negative) Urine Bilirubin (Negative) Urine Urobilinogen (Normal) mg/dL Ur Leukocyte Esterase (Negative) Urine Microscopic RBC (0-3) per hpf Urine Microscopic WBC (0-3) per hpf Ur Squamous Epith Cells (None-Few) per lpf Urine Bacteria (None-Few) per hpf Ur Culture Indicated? (NO) 07/18/19 07/18/19 Range/Units 15:54 17:15 WBC (4.3-11.1) K/mcL RBC (3.82-4.97) M/mcL Hgb (11.5-15.4) g/dL Hct (35.3-44.9) % MCV (83.0-100.0) fL MCH (28.0-33.3) pg MCHC (31.6-35.5) g/dL RDW (11.5-14.5) % Plt Count (140-400) K/mcL MPV (9.4-12.4) fL Immature Gran % (0-4) % Seg Neutrophils % % Lymphocytes % % Monocytes % % Eosinophils % % Basophils % % Neutrophils # (1.6-8.9) K/mcL Lymphocytes # (0.6-4.6) K/mcL Monocytes # (0.0-1.3) K/mcL Eosinophils # (0.0-0.6) K/mcL Basophils # (0.0-0.2) K/mcL Nucleated RBCs/100 WBC (0) /100 WBC PT (9.4-12.1) Seconds INR Sodium (136-145) mEq/L Potassium (3.5-5.1) mEq/L Chloride (98-107) mEq/L Carbon Dioxide (23-29) mEq/L BUN (8-23) mg/dL Creatinine (0.60-1.20) mg/dL Est GFR ( Amer) (> 60) Est GFR (Non-Af Amer) (> 60) BUN/Creatinine Ratio (6-26) Glucose (70-105) mg/dL Calculated Osmolality (280-300) Calcium (8.6-10.3) mg/dL Magnesium (1.6-2.6) mg/dL Total Bilirubin (0.3-1.0) mg/dL AST (13-39) Units/L ALT (7-52) Units/L Alkaline Phosphatase (34-104) Units/L Ammonia 47 (16-53) mcmol/L Troponin I (< 0.04) ng/mL Serum Total Protein (6.4-8.9) g/dL Albumin (3.5-5.7) g/dL Globulin (2.4-3.5) g/dL Albumin/Globulin Ratio (1.1-2.2) Lipase (11-82) Units/L Urine Color [place] A (Yellow) Urine Clarity Cloudy A (Clear) Urine pH 5.0 (5.0-8.0) pH Units Ur Specific [place] 1.019 (1.010-1.025) Urine Protein Negative (Neg-Trace) mg/dL Urine Glucose (UA) Normal (Normal) mg/dL Urine Ketones Trace H (Negative) mg/dL Urine Blood Moderate H (Negative) Urine Nitrite Negative (Negative) Urine Bilirubin Large H (Negative) Urine Urobilinogen 2.0 H (Normal) mg/dL Ur Leukocyte Esterase Small H (Negative) Urine Microscopic RBC 0-3 (0-3) per hpf Urine Microscopic WBC 5-15 H (0-3) per hpf Ur Squamous Epith Cells Many H (None-Few) per lpf Urine Bacteria Many H (None-Few) per hpf Ur Culture Indicated? YES A (NO) - Radiology Data Radiology results reviewed: Yes I reviewed the patient's radiology results. - EKG Data EKG attestation: Yes I reviewed and interpreted this EKG. EKG results narrative: EKG done at 1546 review myself and the attending shows sinus rhythm at a rate of 100. [place] 150, QRS 88, QTC 405. There is no acute ST changes no acute T-wave changes no signs of ischemia. No signs of hypertrophy, heart strain, heart block. No WPW/Brugada/HOCM. No changes based on old EKG done 08/19/18
[2018-09-25 16:26] LABS: Albumin 2.6 g/dL (3.5-5.7); Albumin/Globulin Ratio 0.8 (1.1-2.2); Bilirubin,Total 7.3 mg/dL (0.3-1.0); Calcium 8.5 mg/dL (8.6-10.3); Globulin 3.1 g/dL (2.4-3.5); Magnesium 2.4 mg/dL (1.6-2.6); Potassium 5.6 mEq/L (3.5-5.1); Total Protein 5.7 g/dL (6.4-8.9)
[2018-09-25 16:30] LABS: Troponin I 0.07 ng/mL (< 0.04)
[2018-09-25 16:41] LABS: INR 1.2; Prothrombin Time 13.4 Seconds (9.4-12.1)
[2018-09-25 17:27] LABS: Bilirubin,Urine Large (Negative); Blood,Urine Moderate (Negative); Clarity,Urine Cloudy (Clear); Color,Urine Orange (Yellow); Glucose,Urine (UA) Normal (Normal); Ketones,Urine Trace mg/dL (Negative); Leukocyte Esterase,Urine Small (Negative); Nitrite,Urine Negative (Negative); Protein,Urine Negative (Neg-Trace); Specific Gravity,Urine 1.019 (1.010-1.025)
[2018-09-25] MEDS ORDERED: 0.9 % Sodium Chloride 1,000 ML IVC ONE (17:27)
[2018-09-25 17:28] LABS: Bacteria,Urine Many per hpf (None-Few); Squamous Epithelial Cell,Urine Many per lpf (None-Few)
[2018-09-25 17:59] LABS: RBC,Urine 0-3 per hpf (0-3)
[2018-09-25] MEDS ORDERED: Aspirin 81 MG TAB.CHEW PO ONE (19:21)
[2018-09-25] MEDS ORDERED: cefTRIAXone 1,000 MG in Water for inj. (sterile) 10 ML IVP ONE (19:25)
[2018-09-25] MEDS ORDERED: Naloxone 0.4 MG/ML INJ IVP PRN (20:28)
[2018-09-25] MEDS ORDERED: Albumin 25% 25gram/100mL 25 GM/100 ML IV.SOLN IVC SCH (21:30)
--- NOTE | 2018-09-25 21:50 | Discharge Summary ---
Orders not resulted at time of discharge: Pending orders 09/25/18 15:45 ECG 12 lead ECG [ECG] Stat 09/25/18 17:15 Culture,Urine [RM] Stat 09/25/18 21:29 Creatinine,Urine [UCHEM] Stat Sodium Stat Urea Nitrogen,Urine [UCHEM] Stat 09/26/18 04:00 Complete Blood Count [HEME] AM 0400 Comprehensive Metabolic Panel AM 0400 Magnesium AM 0400 Phosphorous AM 0400 Prothrombin Time INR [COAG] AM 0400 Date of Encounter: 09/25/18 Hospital course: Ms. Crisostomo is a 68 year old female - Time Spent with Patient Total time spent providing and/or coordinating discharge services: - Discharge Medications Prescriptions: No Action Albuterol Sulfate [Albuterol Inhaler] 2 puff IH Q4HR PRN PRN Reason: Shortness Of Breath Vitamin E (Dl,Tocopheryl Acet) [Vitamin E] 400 unit PO BID Triamterene/HCTZ 37.5/25mg [Dyazide] 1 each PO DAILY Montelukast [Singulair] 10 mg PO DAILY Calcium Carbonate/Vitamin D3 [Calcium 600-Vit D3 800 Tablet] 1 each PO BID Roflumilast [Daliresp] 500 mcg PO DAILY Losartan [Cozaar] 50 mg PO DAILY GlipiZIDE [Glucotrol] 10 mg PO BID Potassium Chloride [Klor-Con Sprinkle] 10 meq PO TID Formoterol Fumarate [Perforomist] 20 mcg IH PRN PRN PRN Reason: Shortness Of Breath Budesonide Neb [Pulmicort Neb] 0.5 mg IH BIDR Oxygen 1 each .ROUTE AD Pravastatin Sodium [Pravachol] 40 mg PO DAILY Pantoprazole Sodium [Protonix] 40 mg PO DAILY #30 tablet. Gabapentin [Neurontin] 400 mg PO TID PRN PRN Reason: Pain Metoprolol [Lopressor] 12.5 mg PO DAILY Montelukast [Singulair] 10 mg PO DAILY hydrOXYzine HCl [Hydroxyzine HCl] 50 mg PO Q8H PRN PRN Reason: Anxiety Home Medications: Albuterol Sulfate [Albuterol Inhaler] 2 puff IH Q4HR PRN 01/26/15 [History] Calcium Carbonate/Vitamin D3 [Calcium 600-Vit D3 800 Tablet] 1 each PO BID 01/26/15 [History] Formoterol Fumarate [Perforomist] 20 mcg IH PRN PRN 01/26/15 [History] GlipiZIDE [Glucotrol] 10 mg PO BID 01/26/15 [History] Losartan [Cozaar] 50 mg PO DAILY 01/26/15 [History] Montelukast [Singulair] 10 mg PO DAILY 01/26/15 [History] Potassium Chloride [Klor-Con Sprinkle] 10 meq PO TID 01/26/15 [History] Roflumilast [Daliresp] 500 mcg PO DAILY 01/26/15 [History] Triamterene/HCTZ 37.5/25mg [Dyazide] 1 each PO DAILY 01/26/15 [History] Vitamin E (Dl,Tocopheryl Acet) [Vitamin E] 400 unit PO BID 01/26/15 [History] Budesonide Neb [Pulmicort Neb] 0.5 mg IH BIDR 06/26/16 [History] Oxygen 1 each .ROUTE AD 07/09/16 [History] Pravastatin Sodium [Pravachol] 40 mg PO DAILY 07/12/16 [History] Pantoprazole Sodium [Protonix] 40 mg PO DAILY #30 tablet. 12/04/16 [Rx] Gabapentin [Neurontin] 400 mg PO TID PRN 08/02/17 [History] hydrOXYzine HCl [Hydroxyzine HCl] 50 mg PO Q8H PRN 06/02/18 [History] Metoprolol [Lopressor] 12.5 mg PO DAILY 08/06/18 [History] Montelukast [Singulair] 10 mg PO DAILY 09/25/18 [History] Allergies/Adverse Reactions: Allergy/AdvReac Type Severity Reaction Status Date / Time fluticasone Allergy Blister Verified 09/19/18 15:15 [From Advair Diskus] salmeterol Allergy Blister Verified 09/19/18 15:15 [From Advair Diskus] Primary care physician: Joseph Chapin MD - Constitutional Vitals: Temp Pulse Resp BP Pulse Ox 97.4 F L 100 18 103/48 100 09/25/18 15:34 09/25/18 21:15 09/25/18 21:15 09/25/18 21:15 09/25/18 21:15 - Patient Status Disposition: Admitted As Inpatient Condition: Fair - Discharge Instructions Follow Up With: Joseph Chapin MD [Primary Care Provider] -
--- NOTE | 2018-09-25 21:50 | Internal Med History&Physical ---
Date of Encounter: 09/25/18 Internal Medicine - H&P: HPI History of present illness: Ms. Crisostomo is a 68 year old female Past Med Surg Social Fam HX - Past Medical History Medical history: cancer, COPD, diabetes, hypertension Psychiatric history: no psych history - Past Surgical History Surgical History: cholecystectomy Additional surgical history: CATARACT REMOVAL. MASTECTOMY. PLATE IN SKULL - Social History Smoking Status: Former smoker Smokeless Tobacco Status: No Alcohol use: none Drug use: none - Family History Father Adopted: No Living Status: Mother Family Member Ethnicity: Non- Living Status: Hx Family Cardiac Disorders: Yes Hx Family Respiratory Disorders: No Hx Family Cancer: No Hx Family GI Disorders: No Hx Family Endocrine Disorder: No Hx Family Neuromuscular Disorders: No Hx Family Neurologic Disorders: No Hx Family HEENT Disorders: No Hx Family Autoimmune Disorders: No Brother Living Status: Still Living Hx Family Cardiac Disorders: Yes Hx Family Respiratory Disorders: No Hx Family Cancer: No Hx Family GI Disorders: No Hx Family Endocrine Disorder: No Hx Family Neuromuscular Disorders: No Hx Family Neurologic Disorders: No Hx Family HEENT Disorders: No Hx Family Autoimmune Disorders: No Internal Medicine - H&P: Meds Albuterol Sulfate [Albuterol Inhaler] 2 puff IH Q4HR PRN 01/26/15 [History] Calcium Carbonate/Vitamin D3 [Calcium 600-Vit D3 800 Tablet] 1 each PO BID 01/26/15 [History] Formoterol Fumarate [Perforomist] 20 mcg IH PRN PRN 01/26/15 [History] GlipiZIDE [Glucotrol] 10 mg PO BID 01/26/15 [History] Losartan [Cozaar] 50 mg PO DAILY 01/26/15 [History] Montelukast [Singulair] 10 mg PO DAILY 01/26/15 [History] Potassium Chloride [Klor-Con Sprinkle] 10 meq PO TID 01/26/15 [History] Roflumilast [Daliresp] 500 mcg PO DAILY 01/26/15 [History] Triamterene/HCTZ 37.5/25mg [Dyazide] 1 each PO DAILY 01/26/15 [History] Vitamin E (Dl,Tocopheryl Acet) [Vitamin E] 400 unit PO BID 01/26/15 [History] Budesonide Neb [Pulmicort Neb] 0.5 mg IH BIDR 06/26/16 [History] Oxygen 1 each .ROUTE AD 07/09/16 [History] Pravastatin Sodium [Pravachol] 40 mg PO DAILY 07/12/16 [History] Pantoprazole Sodium [Protonix] 40 mg PO DAILY #30 tablet. 12/04/16 [Rx] Gabapentin [Neurontin] 400 mg PO TID PRN 08/02/17 [History] hydrOXYzine HCl [Hydroxyzine HCl] 50 mg PO Q8H PRN 06/02/18 [History] Metoprolol [Lopressor] 12.5 mg PO DAILY 08/06/18 [History] Montelukast [Singulair] 10 mg PO DAILY 09/25/18 [History] Allergy/AdvReac Type Severity Reaction Status Date / Time fluticasone Allergy Blister Verified 09/19/18 15:15 [From Advair Diskus] salmeterol Allergy Blister Verified 09/19/18 15:15 [From Advair Diskus] All Systems PM: A 10-system review of systems was performed and is negative for pertinent findings except as documented above in the HPI. - Constitutional Vitals: Temp Pulse Resp BP Pulse Ox 97.4 F L 100 18 103/48 100 09/25/18 15:34 09/25/18 21:15 09/25/18 21:15 09/25/18 21:15 09/25/18 21:15 Internal Med - H&P Results - Labs CBC & Chem 7: 09/25/18 15:54 09/25/18 15:54 Labs: Short CBC 09/25/18 Range/Units 15:54 WBC 12.9 H (4.3-11.1) K/mcL Hgb 13.0 (11.5-15.4) g/dL Hct 38.8 (35.3-44.9) % Plt Count 251 (140-400) K/mcL Neutrophils # 9.9 H (1.6-8.9) K/mcL BMP 09/25/18 15:54 Sodium 128 L Potassium 5.6 H Chloride 92 L Carbon Dioxide 22 L BUN 56 H Creatinine 2.56 H Glucose 105 Calcium 8.5 L Cardiac Enzymes 09/25/18 Range/Units 15:54 Troponin I 0.07 H* (< 0.04) ng/mL Liver Function 09/25/18 Range/Units 15:54 Total Bilirubin 7.3 H (0.3-1.0) mg/dL AST 328 H (13-39) Units/L ALT 121 H (7-52) Units/L Alkaline Phosphatase 634 H (34-104) Units/L Albumin 2.6 L (3.5-5.7) g/dL Urine 09/25/18 Range/Units 17:15 Urine Color [place] A (Yellow) Urine Clarity Cloudy A (Clear) Urine pH 5.0 (5.0-8.0) pH Units Ur Specific [place] 1.019 (1.010-1.025) Urine Protein Negative (Neg-Trace) mg/dL Urine Glucose (UA) Normal (Normal) mg/dL - Impressions ITS Impressions Abdomen/Pelvis CT 09/25/18 15:46 IMPRESSION: 1. Hepatic steatosis and hepatic surface nodularity suggesting hepatic cirrhosis. 2. Submucosal fat deposition within the colon suggesting chronic or recurrent inflammation. 3. Small amount of free fluid in the pelvis and mild mesenteric edema. Mild body wall edema present as well. 4. The endometrium is thickened for postmenopausal patient, measuring about 1 cm in thickness. This is greater than expected for a postmenopausal patient. Nonemergent pelvic ultrasound recommended for further evaluation. D/ / 09/25/2018 17:41:56 Adrien Morrell MD / claribel Interpreting Provider: Adrien Morrell MD Chest X-Ray 09/25/18 15:46 IMPRESSION: Stable chest x-ray including stable enlargement of the central pulmonary arteries suggesting pulmonary arterial hypertension. No acute disease. D/ / Dwight Martinez MD / Dwight Martinez MD Interpreting Provider: Dwight Martinez MD Head CT 09/25/18 16:07 IMPRESSION: No acute intracranial abnormality. 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 D/ / Dwight Martinez MD / Dwight Martinez MD Interpreting Provider: Dwight Martinez MD - Time Spent With Patient Total time spent is greater than 50% in coordination of care (as documented) at patient's floor/unit and/or counseling patient:
--- NOTE | 2018-09-25 22:25 | Internal Med History&Physical ---
<Allen Yung - Last Filed: 09/26/18 05:51> Date of Encounter: 09/26/18 Time of Encounter: 22:27 Internal Medicine - H&P: HPI Chief complaint: Edema Admitted From: Emergency Dept Plans for Post Hospital Care: Transfer Other ([facility]) History of present illness: Ms. Crisostomo is a 68 year old female with history of breast cancer s/p right mastectomy and chemo 1yr ago, copd, DM, chemo induced cardiomyopathy which as since resolved who presents to the ED from GI clinic for complaint of increased edema and and nausea for 2-3 weeks duration. She says that over the past 2-3 weeks she has been having worsening abdominal pain and inability to eat or drink. She tries to eat and drink, but feels that food gets caught in her chest and she ends up spitting it back up. This is happening with both solid and liqui d food to the point that she is able to only tolerate about one bottle of water per day. Nothing seems to help this or make it any better. In addition to this, she is feeling very nauseated most of the time. She has noticed that she has regular abdominal pain in the right upper quadrant that is 8/10 in severity and nonradiating. In addition to these symptoms, the patient has noted a yellowing of her skin, and has also started to feel increasingly dizzy and disoriented over the past few days. She says that she's never felt like this before, and she believes it may be due to her lack of ability to eat. She continues to make urine. She denies headache or visual disturbance. She does admit to hematuria. She otherwise has no acute complaints. In the emergency department, the patient had labs which demonstrated sodium 128, potassium 5.6, BUN 56, Creatinine 2.56, Total Bilirubin 7.3 and INR 1.2. She Had a head CT which was negative, a CXR which showed enlargement of pulmonary arteries, and had a CT abd/pelvis demonstrating hepatic steatosis and hepatic surface nodularity suggestive of hepatic cirrhosis. GI was apparently contacted in the ED and stated that he suspected CHF with possible hepatic component, and that he could see her here. Nephrology was also consulted in the ED. Past Med Surg Social Fam HX - Past Medical History Medical history: cancer, COPD, diabetes, hypertension Psychiatric history: no psych history - Past Surgical History Surgical History: cholecystectomy Additional surgical history: CATARACT REMOVAL. MASTECTOMY. PLATE IN SKULL - Social History Smoking Status: Former smoker Smokeless Tobacco Status: No Alcohol use: none Drug use: none - Family History Father Adopted: No Living Status: Mother Family Member Ethnicity: Non- Living Status: Hx Family Cardiac Disorders: Yes Hx Family Respiratory Disorders: No Hx Family Cancer: No Hx Family GI Disorders: No Hx Family Endocrine Disorder: No Hx Family Neuromuscular Disorders: No Hx Family Neurologic Disorders: No Hx Family HEENT Disorders: No Hx Family Autoimmune Disorders: No Brother Living Status: Still Living Hx Family Cardiac Disorders: Yes Hx Family Respiratory Disorders: No Hx Family Cancer: No Hx Family GI Disorders: No Hx Family Endocrine Disorder: No Hx Family Neuromuscular Disorders: No Hx Family Neurologic Disorders: No Hx Family HEENT Disorders: No Hx Family Autoimmune Disorders: No Internal Medicine - H&P: Meds Albuterol Sulfate [Albuterol Inhaler] 2 puff IH Q4HR PRN 01/26/15 [History] Calcium Carbonate/Vitamin D3 [Calcium 600-Vit D3 800 Tablet] 1 each PO BID 01/26/15 [History] Formoterol Fumarate [Perforomist] 20 mcg IH PRN PRN 01/26/15 [History] GlipiZIDE [Glucotrol] 10 mg PO BID 01/26/15 [History] Losartan [Cozaar] 50 mg PO DAILY 01/26/15 [History] Montelukast [Singulair] 10 mg PO DAILY 01/26/15 [History] Potassium Chloride [Klor-Con Sprinkle] 10 meq PO TID 01/26/15 [History] Roflumilast [Daliresp] 500 mcg PO DAILY 01/26/15 [History] Triamterene/HCTZ 37.5/25mg [Dyazide] 1 each PO DAILY 01/26/15 [History] Vitamin E (Dl,Tocopheryl Acet) [Vitamin E] 400 unit PO BID 01/26/15 [History] Budesonide Neb [Pulmicort Neb] 0.5 mg IH BIDR 06/26/16 [History] Oxygen 1 each .ROUTE AD 07/09/16 [History] Pravastatin Sodium [Pravachol] 40 mg PO DAILY 07/12/16 [History] Pantoprazole Sodium [Protonix] 40 mg PO DAILY #30 tablet. 12/04/16 [Rx] Gabapentin [Neurontin] 400 mg PO TID PRN 08/02/17 [History] hydrOXYzine HCl [Hydroxyzine HCl] 50 mg PO Q8H PRN 06/02/18 [History] Metoprolol [Lopressor] 12.5 mg PO DAILY 08/06/18 [History] Montelukast [Singulair] 10 mg PO DAILY 09/25/18 [History] Allergy/AdvReac Type Severity Reaction Status Date / Time fluticasone Allergy Blister Verified 09/19/18 15:15 [From Advair Diskus] salmeterol Allergy Blister Verified 09/19/18 15:15 [From Advair Diskus] All Systems PM: A 10-system review of systems was performed and is negative for pertinent findings except as documented above in the HPI. Review of systems: Constitutional: Denies fevers, chills, weight loss. Admits to generalized fatigue Head/Neck: Denies SCHRADER, neck stiffness EENT: Denies vision changes/blurriness, rhinorrhea, congestion, sore throat CVS: Denies chest pain, palpitations, BOX, orthopnea, PND. Admits to Edema in LEs Pulm: Denies hemoptysis, wheezing. Admits to cough, sputum production, BOX. GI: Admits to abdominal pain, nausea, vomiting, difficulty swallowing : Denies dysuria, increased frequency, urgency. Admits to hematuria Heme: Denies ease of bleeding or bruising MSK: Denies joint pain, limited ROM Skin: Denies rashes, ulcers, color changes Neuro: Denies SCHRADER, paresthesias, focal deficits, ataxia. Admits to dizziness - Constitutional Vitals: Temp Pulse Resp BP Pulse Ox 97.4 F L 100 18 103/48 100 09/25/18 15:34 09/25/18 21:15 09/25/18 21:15 09/25/18 21:15 09/25/18 21:15 Exam: Gen: Vitals noted. Appears mildly distressed Eyes: Mildly icteric sclerae, moist conjunctivae; no lid-lag; Pupils equal and reactive to light HENT: Atraumatic; oropharynx clear with moist mucous membranes and no mucosal ulcerations; normal hard and soft palate Neck: Trachea midline; supple, no thyromegaly or lymphadenopathy Cardiac: RRR, no murmur, +S1/S2 Pulmonary: Bilateral basilar crackles noted on examination Abdomen: Tenderness to palpation in the right upper quadrant, minimally distended. no guarding. No masses or hepatosplenomegaly MSK: ROM intact, no joint swelling noted Extremities: 1+ BLE edema, nontender calf, no cyanosis or clubbing Skin: Normal temperature, turgor and texture. There is minimal jaundice noticed on exam; no rash, ulcers or subcutaneous nodules Neuro: moves all extremities, no focal deficits. No obvious asterixis noted Psych: Appropriate mood and behavior. A&Ox3 Internal Med - H&P Results - Labs CBC & Chem 7: 09/26/18 01:04 09/26/18 01:04 Labs: Short CBC 09/25/18 Range/Units 15:54 WBC 12.9 H (4.3-11.1) K/mcL Hgb 13.0 (11.5-15.4) g/dL Hct 38.8 (35.3-44.9) % Plt Count 251 (140-400) K/mcL Neutrophils # 9.9 H (1.6-8.9) K/mcL BMP 09/25/18 15:54 Sodium 128 L Potassium 5.6 H Chloride 92 L Carbon Dioxide 22 L BUN 56 H Creatinine 2.56 H Glucose 105 Calcium 8.5 L Cardiac Enzymes 09/25/18 Range/Units 15:54 Troponin I 0.07 H* (< 0.04) ng/mL Liver Function 09/25/18 Range/Units 15:54 Total Bilirubin 7.3 H (0.3-1.0) mg/dL AST 328 H (13-39) Units/L ALT 121 H (7-52) Units/L Alkaline Phosphatase 634 H (34-104) Units/L Albumin 2.6 L (3.5-5.7) g/dL Urine 09/25/18 Range/Units 17:15 Urine Color Clarke A (Yellow) Urine Clarity Cloudy A (Clear) Urine pH 5.0 (5.0-8.0) pH Units Ur Specific Gulliver 1.019 (1.010-1.025) Urine Protein Negative (Neg-Trace) mg/dL Urine Glucose (UA) Normal (Normal) mg/dL - Impressions ITS Impressions Abdomen/Pelvis CT 09/25/18 15:46 IMPRESSION: 1. Hepatic steatosis and hepatic surface nodularity suggesting hepatic cirrhosis. 2. Submucosal fat deposition within the colon suggesting chronic or recurrent inflammation. 3. Small amount of free fluid in the pelvis and mild mesenteric edema. Mild body wall edema present as well. 4. The endometrium is thickened for postmenopausal patient, measuring about 1 cm in thickness. This is greater than expected for a postmenopausal patient. Nonemergent pelvic ultrasound recommended for further evaluation. D/ / 09/25/2018 17:41:56 Adrien Morrell MD / [email or web address] Interpreting Provider: Adrien Morrell MD Chest X-Ray 09/25/18 15:46 IMPRESSION: Stable chest x-ray including stable enlargement of the central pulmonary arteries suggesting pulmonary arterial hypertension. No acute disease. D/ / Dwight Martinez MD / Dwight Martinez MD Interpreting Provider: Dwight Martinez MD Head CT 09/25/18 16:07 IMPRESSION: No acute intracranial abnormality. 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 D/ / Dwight Martinez MD / Dwight Martinez MD Interpreting Provider: Dwight Martinez MD - Assessment and Plan (1) MARIZA (acute kidney injury) Current Visit: Yes Status: Acute Assessment and plan: Acute kidney injury, serum creatinine 2.56 At this time, suspect mixed etiology with prerenal component, however possible/probably hepatorenal component She has been unable to eat or drink substantially for the past 2-3 weeks, accounting for prerenal component Patient has new hepatic syndrome which has not previously been described in her medical history CT of the abdomen/pelvis has been questionable about hepatic lesions, possible metastatic disease UA does show moderate blood, many bacteria Functional deficits evident, bicarb down, potassium and BUN up Plan While we will work this up as an MARIZA, we will also treat this as a high risk hepatorenal syndrome given the rapid evolution of liver enzymes and MELD score shown on prior labs. 100g Albumin today, 7.5mg Midodrine TID, Octreotide drip Measure strict I/Os Retroperitoneal US in AM Urine Sodium, creatinine, urea Repeat BMP in AM Nephrology and GI consult Plan to transfer to [facility] when bed available (2) Elevated liver enzymes Current Visit: Yes Status: Acute Assessment and plan: Elevated liver enzymes, MELD-Na 30 on presentation AST 328, ALT 121, ALP 634. Total Bilirubin 7.3, INR 1.2 Patient presents with new hepatic injury which is rapidly developing It appears that on 09/19 the patient had a MELD-Na of 16 Unclear the etiology of this injury, patient has had workup for possible liver mets Abdomen MRI 09/15/18 showed no definite metastatic liver disease. The liver is enlarged and demonstrates heterogeneous attenuation with patchy moderate steatosis. CT Abdomen/Pelvis 09/25/18 shows Hepatic steatosis and nodularity suggesting hepatic cirrhosis. Prior CT chest abdomen and pelvis with IV contrast 04/22/2018 showed a new small 1.2 cm enhancing nodular lesion within the left hepatic lobe, This could represent a small flash filling hemangioma or less likely metastatic disease. At this time is unclear what is causing this patient's hepatic deterioration, however it does appear to be happening rapidly As the patient appears to have worsening liver function and renal function, there is concern for hepatorenal function, and we feel that evaluation by product development actuary is most appropriate We have spoken to [facility] to arrange for transfer in AM if possible In mean time, will give albumin, octreotide, midodrine as above (3) Volume overload Current Visit: Yes Status: Acute Assessment and plan: Volume overload apparent on examination, multifactorial Likely both hepatic and renal in nature Patient does have 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/2017, she has since had multiple echocardiograms demonstrating recovery of function Echocardiogram 07/28/18 shows LVEF 50%, Mild LVH with mild LV diastolic dysfunction Limited Echo 09/16/18 shows LVEF 60% with LV wall thickness and function grossly normal There could be a component of diastolic heart failure, however patient has hepatorenal syndrome appearance in labs which require volume repletion Will carefully replace, monitor closely Qualifiers: Hypervolemia type: other Qualified Code(s): E87.79 - Other fluid overload (4) Hyperkalemia Current Visit: Yes Status: Acute Assessment and plan: Elevated potassium, likely in response to renal failure No EKG changes at this time Will give IV insulin, dextrose and inhaled albuterol Repeat in AM (5) Elevated troponin Current Visit: Yes Status: Acute Assessment and plan: Elevated troponin, likely demand ischemia No evidence of ischemic changes on EKG We will trend to peak manager monitoring (6) Abdominal pain Current Visit: Yes Status: Acute Qualifiers: Abdominal location: generalized Qualified Code(s): R10.84 - Generalized abdominal pain (7) Diabetes Current Visit: No Status: Chronic Assessment and plan: ACHS Accuchecks Sliding scale insulin Qualifiers: Diabetes mellitus type: type 2 Diabetes mellitus fci insulin use: without fci use Diabetes mellitus complication status: with hyperglycemia Qualified Code(s): E11.65 - Type 2 diabetes mellitus with hyperglycemia (8) COPD (chronic obstructive pulmonary disease) Current Visit: Yes Status: Acute Assessment and plan: COPD, no acute exacerbation evident at this time Will give scheduled symbicort, duonebs PRN Qualifiers: COPD type: unspecified COPD Qualified Code(s): J44.9 - Chronic obstructive pulmonary disease, unspecified (9) History of breast cancer Current Visit: Yes Status: Acute Assessment and plan: Breast cancer stage II, local recurrence in right axillary lymph node Last treatment 2016. Management per outpatient oncology - Time Spent With Patient Total time spent is greater than 50% in coordination of care (as documented) at patient's floor/unit and/or counseling patient: <Vero Baxter - Last Filed: 09/26/18 07:01> Date of Encounter: 09/25/18 Internal Medicine - H&P: HPI History of present illness: Ms. Crisostomo is a 68 year old female All Systems PM: A 10-system review of systems was performed and is negative for pertinent f indings except as documented above in the HPI. - Constitutional Vitals: Temp Pulse Resp BP Pulse Ox 98.7 F 96 18 113/59 100 09/26/18 06:46 09/26/18 06:46 09/26/18 06:46 09/26/18 06:46 09/26/18 06:46 Internal Med - H&P Results - Labs CBC & Chem 7: 09/26/18 01:04 09/26/18 01:04 Labs: Short CBC 09/25/18 09/26/18 Range/Units 15:54 01:04 WBC 12.9 H 14.7 H (4.3-11.1) K/mcL Hgb 13.0 12.7 (11.5-15.4) g/dL Hct 38.8 37.9 (35.3-44.9) % Plt Count 251 226 (140-400) K/mcL Neutrophils # 9.9 H 11.2 H (1.6-8.9) K/mcL BMP 09/25/18 09/26/18 15:54 01:04 Sodium 128 L 129 L Potassium 5.6 H 6.1 H Chloride 92 L 97 L Carbon Dioxide 22 L 19 L BUN 56 H 57 H Creatinine 2.56 H 2.51 H Glucose 105 70 Calcium 8.5 L 8.3 L Cardiac Enzymes 09/25/18 09/26/18 Range/Units 15:54 01:04 Troponin I 0.07 H* 0.07 H* (< 0.04) ng/mL Liver Function 09/25/18 09/26/18 Range/Units 15:54 01:04 Total Bilirubin 7.3 H 7.0 H (0.3-1.0) mg/dL AST 328 H 317 H (13-39) Units/L ALT 121 H 116 H (7-52) Units/L Alkaline Phosphatase 634 H 602 H (34-104) Units/L Albumin 2.6 L 2.4 L (3.5-5.7) g/dL Urine 09/25/18 Range/Units 17:15 Urine Color Clarke A (Yellow) Urine Clarity Cloudy A (Clear) Urine pH 5.0 (5.0-8.0) pH Units Ur Specific Gulliver 1.019 (1.010-1.025) Urine Protein Negative (Neg-Trace) mg/dL Urine Glucose (UA) Normal (Normal) mg/dL - Impressions ITS Impressions Abdomen/Pelvis CT 09/25/18 15:46 IMPRESSION: 1. Hepatic steatosis and hepatic surface nodularity suggesting hepatic cirrhosis. 2. Submucosal fat deposition within the colon suggesting chronic or recurrent inflammation. 3. Small amount of free fluid in the pelvis and mild mesenteric edema. Mild body wall edema present as well. 4. The endometrium is thickened for postmenopausal patient, measuring about 1 cm in thickness. This is greater than expected for a postmenopausal patient. Nonemergent pelvic ultrasound recommended for further evaluation. D/ / 09/25/2018 17:41:56 Adrien Morrell MD / claribel Interpreting Provider: Adrien Morrell MD Chest X-Ray 09/25/18 15:46 IMPRESSION: Stable chest x-ray including stable enlargement of the central pulmonary arteries suggesting pulmonary arterial hypertension. No acute disease. D/ / Dwight Martinez MD / Dwight Martinez MD Interpreting Provider: Dwight Martinez MD Head CT 09/25/18 16:07 IMPRESSION: No acute intracranial abnormality. 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 D/ / Dwight Martinez MD / Dwight Martinez MD Interpreting Provider: Dwight Martinez MD - Time Spent With Patient Total time spent is greater than 50% in coordination of care (as documented) at patient's floor/unit and/or counseling patient: - Attending Attestation I performed a history and physical examination of the patient and discussed his management with the resident. I reviewed the residents note and agree with the documented findings and plan of care.
[2018-09-25] MEDS: Octreotide 400 MCG in 0.9 % Sodium Chloride 100 ML IVC SCH (22:50)
[2018-09-26] MEDS ORDERED: Gabapentin 400 MG CAPSULE PO PRN (00:41)
[2018-09-26] MEDS ORDERED: Ondansetron 4 MG/2 ML VIAL IVP PRN (00:44)
[2018-09-26] MEDS ORDERED: *HR* OxyCODONE Immed Rel 5 MG TABLET PO PRN (00:45)
[2018-09-26] MEDS ORDERED: Ipratropium/Albuterol Neb 3 ML IH PRN (00:54)
[2018-09-26 01:22] LABS: Basophils # 0.1 K/mcL (0.0-0.2); Basophils % 0.3 %; Eosinophils % 0.2 %; Hematocrit 37.9 % (35.3-44.9); Hemoglobin 12.7 g/dL (11.5-15.4); Immature Granulocytes % 0.8 % (0-4); Lymphocytes # 1.9 K/mcL (0.6-4.6); Lymphocytes % 12.6 %; Mean Corpuscular HGB Conc 33.5 g/dL (31.6-35.5); Mean Corpuscular Hemoglobin 29.7 pg (28.0-33.3); Mean Corpuscular Volume 88.6 fL (83.0-100.0); Mean Platelet Volume 9.5 fL (9.4-12.4); Monocytes # 1.5 K/mcL (0.0-1.3); Monocytes % 10.4 %; Neutrophils # 11.2 K/mcL (1.6-8.9); Nucleated Red Blood Cells 0.3 /100 WBC (0); Platelet Count 226 K/mcL (140-400); Red Blood Count 4.28 M/mcL (3.82-4.97); Red Cell Distribution Width 18.3 % (11.5-14.5); Segmented Neutrophils % 75.7 %; White Blood Count 14.7 K/mcL (4.3-11.1)
[2018-09-26 01:29] LABS: INR 1.2; Prothrombin Time 13.5 Seconds (9.4-12.1)
[2018-09-26] MEDS: Albumin 25% 25gram/100mL 25 GM/100 ML IV.SOLN IVC SCH ×4 (01:31→12:33)
[2018-09-26] MEDS ORDERED: D5% in Water 1,000 ML IVC PRN (01:43)
[2018-09-26] MEDS ORDERED: Dextrose Gel 15 GM/37.5 ML TUBE PO PRN ×2 (01:43)
[2018-09-26 01:45] LABS: Albumin 2.4 g/dL (3.5-5.7); Albumin/Globulin Ratio 0.8 (1.1-2.2); Calcium 8.3 mg/dL (8.6-10.3); Magnesium 2.4 mg/dL (1.6-2.6); Phosphorous 6.1 mg/dL (2.7-4.5); Potassium 6.1 mEq/L (3.5-5.1); Total Protein 5.4 g/dL (6.4-8.9)
[2018-09-26 01:49] LABS: Troponin I 0.07 ng/mL (< 0.04)
[2018-09-26] MEDS ORDERED: Albuterol 2.5 MG/3 ML NEBULIZER IH ONE (01:54)
[2018-09-26] MEDS ORDERED: *HR* Dextrose 50 % in Water (Syg) 50 ML SYRINGE IVP ONE (01:54)
[2018-09-26] MEDS ORDERED: Insulin Human Regular 10 UNIT in 0.9 % Sodium Chloride 10 ML IV ONE (01:54)
[2018-09-26] MEDS: *HR* Dextrose 50 % in Water (Syg) 50 ML SYRINGE IVP PRN ×2 (04:13→05:35)
[2018-09-26] MEDS: *HR* Heparin 5,000 UNIT/ML VIAL SQ SCH ×3 (05:47→20:01)
[2018-09-26] MEDS: Budesonide/Formoterol 160/4.5 1 PUFF INH IH SCH ×2 (07:44→19:53)
[2018-09-26] MEDS: Octreotide 400 MCG in 0.9 % Sodium Chloride 100 ML IVC SCH (08:02)
[2018-09-26] MEDS: Insulin LISPRO 300 UNITS/3 ML VIAL SQ SCH ×3 (08:03→18:10)
[2018-09-26] MEDS ORDERED: cefTRIAXone 1,000 MG in Water for inj. (sterile) 10 ML IVP SCH (09:00)
[2018-09-26] MEDS ORDERED: (Roflumilast [Daliresp] 500 MCG) PO SCH (09:00)
--- NOTE | 2018-09-26 10:25 | Gastroenterology Consult Note ---
Date of Encounter: 09/26/18 Time of Encounter: 09:10 - Assessment and plan (1) Cirrhosis Current Visit: Yes Status: Acute Assessment and plan: MELD-Na 29 and Child-Colon class C on admission. Creat was within normal limits at 1.06 on 09/19/2018. On admission Creat 2.56, TB 7.3, AST 328, ALT 121, alk phos 634, ammonia 47. Today Creat 2.51, TB 7, AST 317, ALT 116, alk phos 602, ammonia 54. Concern for hepatorenal syndrome. Recommend transfer to [facility] for further management. Continue Albumin, midodrine, and octreotide. Qualifiers: Hepatic cirrhosis type: unspecified hepatic cirrhosis Ascites presence: unspecified Qualified Code(s): K74.60 - Unspecified cirrhosis of liver (2) MARIZA (acute kidney injury) Current Visit: Yes Status: Acute - Time Spent With Patient Total time spent is greater than 50% in coordination of care (as documented) at patient's floor/unit and/or counseling patient: GI History of Present Illness - Data of Consult Patient: known to practice within the last 3 years Consult date: 09/26/18 Requesting Physician: Lb Casanova, - Consult Narrative Reason for consult: Cirrhosis, hepatorenal syndrome History of present illness: Ms. Crisostomo is a 68 year old female with PMHx of breast cancer, COPD, DM, HTN, chemo induced cardiomyopathy which has since resolved who presents to the ED from GI clinic for complaint of increased edema and and nausea for 2-3 weeks duration. She says that over the past 2-3 weeks she has been having worsening abdominal pain and inability to eat or drink. She tries to eat and drink, but feels that food gets caught in her chest and she ends up spitting it back up. This is happening with both solid and liquid food to the point that she is able to only tolerate about one bottle of water per day. CT A/P showed hepatic steatosis with hepatic surface nodularity suggestive of cirrhosis. She was started on albumin, Midrin, and octreotide. She denies any alcohol use or history of blood transfusions. On admission creatinine 2.56, sodium 128, potassium 5.6, TB 7.3, AST 328, ALT 121, alkaline phosphatase 634, ammonia 47. Creat was within normal limits at 1.06 on 09/19/2018. Procedures: Colonoscopy 06/[address] Barnhart: Descending colon villoglandular adenoma, rectal submucosal leiomyoma. NSAIDs: None Anticoagulation: None Past Med Surg Social Fam HX - Past Medical History Medical history: cancer, COPD, diabetes, hypertension Psychiatric history: no psych history - Past Surgical History Surgical History: cholecystectomy Additional surgical history: CATARACT REMOVAL. MASTECTOMY. PLATE IN SKULL - Social History Smoking Status: Former smoker Smokeless Tobacco Status: No Alcohol use: none Drug use: none - Family History Father Adopted: No Living Status: Hx Family Endocrine Disorder: Yes Mother Family Member Ethnicity: Non- Living Status: Hx Family Cardiac Disorders: Yes Hx Family Respiratory Disorders: No Hx Family Cancer: No Hx Family GI Disorders: No Hx Family Endocrine Disorder: No Hx Family Neuromuscular Disorders: No Hx Family Neurologic Disorders: No Hx Family HEENT Disorders: No Hx Family Autoimmune Disorders: No Brother Living Status: Hx Family Cardiac Disorders: Yes Hx Family Respiratory Disorders: No Hx Family Cancer: No Hx Family GI Disorders: No Hx Family Endocrine Disorder: No Hx Family Neuromuscular Disorders: No Hx Family Neurologic Disorders: No Hx Family HEENT Disorders: No Hx Family Autoimmune Disorders: No - Gastrointestinal Gastrointestinal: Present: as per HPI - Constitutional Constitutional: as per HPI - EENT Eyes: as per HPI Ears: Present: as per HPI Nose, mouth and throat: Present: as per HPI - Cardiovascular Cardiovascular ROS: Present: as per HPI - Respiratory Respiratory IM: Present: as per HPI - Genitourinary Genitourinary: Absent: change in color, Urinary frequency - Neurological ROS Neurological GI: Present: as per HPI - Hematologic/Lymphatic Hematologic/Lymphatic pediatric: Present: as per HPI - Musculoskeletal Musculoskeletal ROS GI: Present: as per HPI - Integumentary Integumentary GI: Present: as per HPI - Psychiatric ROS Psychiatric GI: Present: as per HPI - Endocrine Endocrine IM: Present: as per HPI - Constitutional Vitals: Temp Pulse Resp BP Pulse Ox 98.7 F 96 18 113/59 95 09/26/18 06:46 09/26/18 06:46 09/26/18 06:46 09/26/18 06:46 09/26/18 07:44 General appearance: Present: cooperative, A&O X 3, no acute distress, answers questions appropriately - Head Head exam: Present: atraumatic, normocephalic - Eye Eye exam: Present: normal appearance, sclera anicteric - ENT ENT exam: Present: mucous membranes dry - Neck Neck exam general surgery: Present: normal inspection, trachea midline - Respiratory Respiratory exam: Present: CTAB. Absent: rales, rhonchi - Cardiovascular Cardiovascular exam: Present: RRR, +S1, +S2 - GI/Abdominal GI/Abdominal exam: Present: distended, soft, tenderness (mild), no peritoneal signs. Absent: firm, guarding - Rectal Rectal exam: Present: deferred - Extremities Exam Extremities exam: Present: warm - Neurological Exam Neurological exam: Present: no focal deficits - Psychiatric Psychiatric exam: Present: normal affect, normal mood - Skin Skin exam: Present: dry, intact, normal color, warm Results - Labs CBC & Chem 7: 09/26/18 01:04 09/26/18 06:34 Labs: Last Result 09/26/18 01:04 Calcium 8.3 L Troponin I 0.07 H* Entire Visit 09/26/18 09/26/18 09/26/18 01:04 01:04 01:04 Hgb 12.7 Hct 37.9 PT 13.5 H Total Bilirubin 7.0 H AST 317 H ALT 116 H Ammonia 09/26/18 06:36 Hgb Hct PT Total Bilirubin AST ALT Ammonia 54 H - ABG ABG results: PT/INR, D-dimer PT 13.5 Seconds (9.4-12.1) H 09/26/18 01:04 - Impressions Impressions Abdomen/Pelvis CT 09/25/18 15:46 IMPRESSION: 1. Hepatic steatosis and hepatic surface nodularity suggesting hepatic cirrhosis. 2. Submucosal fat deposition within the colon suggesting chronic or recurrent inflammation. 3. Small amount of free fluid in the pelvis and mild mesenteric edema. Mild body wall edema present as well. 4. The endometrium is thickened for postmenopausal patient, measuring about 1 cm in thickness. This is greater than expected for a postmenopausal patient. Nonemergent pelvic ultrasound recommended for further evaluation. D/ /25/2018 17:41:56 Adrien Morrell MD / claribel Interpreting Provider: Adrien Morrell MD Chest X-Ray 09/25/18 15:46 IMPRESSION: Stable chest x-ray including stable enlargement of the central pulmonary arteries suggesting pulmonary arterial hypertension. No acute disease. D/ / Dwight Martinez MD / Dwight Martinez MD Interpreting Provider: Dwight Martinez MD Head CT 09/25/18 16:07 IMPRESSION: No acute intracranial abnormality. 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 D/ / Dwight Martinez MD / Dwight Martinez MD Interpreting Provider: Dwight Martinez MD Consult Discharge Plan - Plan Referrals: Joseph Chapin MD [Primary Care Provider] -
--- NOTE | 2018-09-26 10:49 | Nephrology Consult Note ---
Date of Encounter: 09/26/18 Time of Encounter: 09:00 Assessment and Plan (1) MARIZA (acute kidney injury) Current Visit: Yes Status: Acute Patient's AKA likely secondary to prerenal from dehydration but also possibly from hepatorenal syndrome due to her new hepatic cirrhosis. Patient had decreased fluid and food intake for 2-3 weeks and continue taking he r medications including Advil up to 4 pills a day as needed, triamterene hydrochlorothiazide, potassium chloride, gabapentin. Previous GFR showed a decrease in July which increased to 54 August 19. P reviously her GFR is greater than 60. We will hold nephrotoxic agents, renally dose medications as necessary, gentle hydration Continue follow renally protective strategy Continue to monitor creatinine function. We will also order a urine sodium (2) Hyponatremia Current Visit: Yes Status: Acute Likely secondary to triamterene hydrochlorothiazide use with decreased fluid intake Gentle hydration with normal saline Continue to monitor (3) Hyperkalemia Current Visit: Yes Status: Acute Likely secondary to decreased fluid intake As well as continued potassium chloride use Continue to monitor Gentle hydration (4) Cirrhosis Current Visit: Yes Status: Acute As per primary team This could have effect on patients MARIZA as there is a possibility of hepatorenal syndrome Qualifiers: Hepatic cirrhosis type: unspecified hepatic cirrhosis Ascites presence: unspecified Qualified Code(s): K74.60 - Unspecified cirrhosis of liver History of Present Illness - Reason for Consult Consult date: 09/26/18 Acute Kidney Injury, hyponatremia, hyperkalemia Requesting physician: Allen Yung - Chief Complaint Nausea for 2 weeks, increased edema - History of Present Illness Ms. 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 COPD, DM. She presented to the ED after 2-3 weeks of nausea without emesis, increased peripheral edema, right upper quadrant pain which is an 8 out of 10, yellowing of the skin, dizziness, disorientation, hematuria. She was admitted to the hospital for MARIZA, elevated enzymes, for kalemia, elevated troponin, abdominal pain. In the ER her sodium was noted to be 128, potassium 5.6, creatinine 2.56, bili 7.3, INR 1.2. CT abdomen showed hepatic steatosis with hepatic surface nodularity concerning for hepatic cirrhosis. Today patient's labs show sodium 129 increased from 128 yesterday, potassium 5.6 stable from yesterday, chloride 97 increased from 92, BUN of 57 increased from 56 yesterday, creatinine 2.51 decreased from 2.56, GFR 19 stable from yesterday. Vital signs today showed temperature 98.7, heart rate 96, respiratory rate of 18, blood pressure 113/59, 100% on 4 L that she is on chronically. Patient has had no recent IV contrast, has had decreased fluid and food intake, currently takes triamterene hydrochlorothiazide, losartan, potassium chloride, gabapentin. She does state that she has taken approximately 4 ibuprofens when needed per day although not every day. She was also on a Z-Robert recently she said she has been off it since September 10. Although she was nauseous and not drinking or eating much she still took all of her medications except for cutting down to 1 pill per day of her glipizide. Patient denies any family history of renal failure Patient denied any pelvic pain or low back pain, denies any new urinary symptoms except for the hematuria. Patient does state she has abdominal pain as well as chills currently and a headache Patient's urine output is currently not being monitored A she was seen and examined at bedside today, patient states that she is feeling somewhat better although she still has some right upper quadrant pain. She states that she has just not felt herself and is felt very nauseous as well as increasing swelling in her legs. Past Med Surg Social Fam HX - Past Medical History Medical history: cancer, COPD, diabetes, hypertension Psychiatric history: no psych history - Past Surgical History Surgical History: cholecystectomy Additional surgical history: CATARACT REMOVAL. MASTECTOMY. PLATE IN SKULL - Social History Smoking Status: Former smoker Smokeless Tobacco Status: No Alcohol use: none Drug use: none - Family History Father Adopted: No Living Status: Hx Family Endocrine Disorder: Yes Mother Family Member Ethnicity: Non- Living Status: Hx Family Cardiac Disorders: Yes Hx Family Respiratory Disorders: No Hx Family Cancer: No Hx Family GI Disorders: No Hx Family Endocrine Disorder: No Hx Family Neuromuscular Disorders: No Hx Family Neurologic Disorders: No Hx Family HEENT Disorders: No Hx Family Autoimmune Disorders: No Brother Living Status: Hx Family Cardiac Disorders: Yes Hx Family Respiratory Disorders: No Hx Family Cancer: No Hx Family GI Disorders: No Hx Family Endocrine Disorder: No Hx Family Neuromuscular Disorders: No Hx Family Neurologic Disorders: No Hx Family HEENT Disorders: No Hx Family Autoimmune Disorders: No Medications and Allergies Albuterol Sulfate [Albuterol Inhaler] 2 puff IH Q4HR PRN 01/26/15 [History] Calcium Carbonate/Vitamin D3 [Calcium 600-Vit D3 800 Tablet] 1 each PO BID 01/26/15 [History] Formoterol Fumarate [Perforomist] 20 mcg IH PRN PRN 01/26/15 [History] GlipiZIDE [Glucotrol] 10 mg PO BID 01/26/15 [History] Losartan [Cozaar] 50 mg PO DAILY 01/26/15 [History] Montelukast [Singulair] 10 mg PO DAILY 01/26/15 [History] Potassium Chloride [Klor-Con Sprinkle] 10 meq PO TID 01/26/15 [History] Roflumilast [Daliresp] 500 mcg PO DAILY 01/26/15 [History] Triamterene/HCTZ 37.5/25mg [Dyazide] 1 each PO DAILY 01/26/15 [History] Vitamin E (Dl,Tocopheryl Acet) [Vitamin E] 400 unit PO BID 01/26/15 [History] Budesonide Neb [Pulmicort Neb] 0.5 mg IH BIDR 06/26/16 [History] Oxygen 1 each .ROUTE AD 07/09/16 [History] Pravastatin Sodium [Pravachol] 40 mg PO DAILY 07/12/16 [History] Pantoprazole Sodium [Protonix] 40 mg PO DAILY #30 tablet. 12/04/16 [Rx] Gabapentin [Neurontin] 400 mg PO TID PRN 08/02/17 [History] hydrOXYzine HCl [Hydroxyzine HCl] 50 mg PO Q8H PRN 06/02/18 [History] Metoprolol [Lopressor] 12.5 mg PO DAILY 08/06/18 [History] Montelukast [Singulair] 10 mg PO DAILY 09/25/18 [History] Allergy/AdvReac Type Severity Reaction Status Date / Time fluticasone Allergy Blister Verified 09/19/18 15:15 [From Advair Diskus] salmeterol Allergy Blister Verified 09/19/18 15:15 [From Advair Diskus] Review of Systems Constitutional: as per HPI, fatigue Nose, mouth and throat: headache(s) Cardiovascular: leg edema, pedal edema, no chest pain, no palpitations, no rapid heart rate Respiratory: cough, dyspnea on exertion, no hemoptysis Gastrointestinal: abdominal pain, nausea Genitourinary Female: no urinary frequency, no urinary hesitancy, no urinary urgency Exam - Vital Signs Vital signs: Initial Vital Signs Temp Pulse Resp BP Pulse Ox 97.4 F L 98 18 98/62 95 09/25/18 15:34 09/25/18 15:34 09/25/18 15:34 09/25/18 15:34 09/25/18 15:34 Vital Signs - Last 8 Hours Temp Pulse Resp BP Pulse Ox 09/26/18 07:44 95 09/26/18 06:46 98.7 F 96 18 113/59 100 09/26/18 06:42 20 99 09/26/18 03:47 97.6 F 98 20 95/53 97 Intake and Output 09/25/18 09/26/18 09/26/18 23:59 07:59 15:59 Intake Total 1510 / 1510 220 / 424 204 / 424 Balance 1510 / 1510 220 / 424 204 / 424 Intake: IV Fluids 1510 / 1510 100 / 304 204 / 304 0.9 % Sodium Chloride 1,000 ML 1000 / 1000 @ 999 mls/hr IVC .Q1H1M ONE Rx# :[id number] 0.9 % Sodium Chloride 500 ML @ 500 / 500 999 mls/hr IVC .Q31M ONE Rx#: [id number] Flexbumin 25 gm In 100 ml @ 60 100 / 200 100 / 200 mls/hr IVC .Q1H40M [facility] Rx#: [id number] SandoSTATIN 400 MCG In 0.9 % 104 / 104 Sodium Chloride 100 ML @ 50 MCG /HR 13 mls/hr IVC .Q8H [facility] Rx#: [id number] Rocephin 1,000 MG In Water for 10 / 10 inj. (sterile) 10 ML @ 600 mls/ hr IVP ONCE ONE Rx#:[id number] Oral 120 / 120 Other: Weight 77.4 kg Blood Glucose* 94 97 Patient Weight 09/26/18 23:59 Weight 77.4 kg - General Appearance General appearance: well-developed, well-nourished, appears started age EENT: mucous membranes dry Neck: no JVD, supple Respiratory: clear Cardiology: edema (2+ pitting to the knee left leg, 1+ to mid calf right leg) Gastrointestinal: normoactive bowel sounds, tenderness (throughout to light touch) Integumentary: no rash, warm and dry Results - Lab Results 09/26/18 01:04 09/26/18 06:34 Most recent lab results 09/26/18 01:04 Calcium 8.3 L Phosphorus 6.1 H Magnesium 2.4 Consult Discharge Plan - Plan Referrals: Joseph Chapin MD [Primary Care Provider] -
--- NOTE | 2018-09-26 11:21 | Internal Med Progress Note ---
Hospitalist Progress Note - Encounter Date of Encounter: 09/26/18 - Exam Vitals: Temp Pulse Resp BP Pulse Ox 98.7 F 96 18 113/59 95 09/26/18 06:46 09/26/18 06:46 09/26/18 06:46 09/26/18 06:46 09/26/18 07:44 - Time Spent with Patient Total time spent is greater than 50% in coordination of care (as documented) at patient's floor/unit and/or counseling patient: Internal Medicine: Result - Labs CBC & Chem 7: 09/26/18 01:04 09/26/18 06:34 Labs: Short CBC 09/25/18 09/26/18 Range/Units 15:54 01:04 WBC 12.9 H 14.7 H (4.3-11.1) K/mcL Hgb 13.0 12.7 (11.5-15.4) g/dL Hct 38.8 37.9 (35.3-44.9) % Plt Count 251 226 (140-400) K/mcL Neutrophils # 9.9 H 11.2 H (1.6-8.9) K/mcL BMP 09/25/18 09/26/18 09/26/18 15:54 01:04 06:34 Sodium 128 L 129 L Potassium 5.6 H 6.1 H 5.6 H Chloride 92 L 97 L Carbon Dioxide 22 L 19 L BUN 56 H 57 H Creatinine 2.56 H 2.51 H Glucose 105 70 Calcium 8.5 L 8.3 L Cardiac Enzymes 09/25/18 09/26/18 Range/Units 15:54 01:04 Troponin I 0.07 H* 0.07 H* (< 0.04) ng/mL Liver Function 09/25/18 09/26/18 Range/Units 15:54 01:04 Total Bilirubin 7.3 H 7.0 H (0.3-1.0) mg/dL AST 328 H 317 H (13-39) Units/L ALT 121 H 116 H (7-52) Units/L Alkaline Phosphatase 634 H 602 H (34-104) Units/L Albumin 2.6 L 2.4 L (3.5-5.7) g/dL Urine 09/25/18 Range/Units 17:15 Urine Color [place] A (Yellow) Urine Clarity Cloudy A (Clear) Urine pH 5.0 (5.0-8.0) pH Units Ur Specific [place] 1.019 (1.010-1.025) Urine Protein Negative (Neg-Trace) mg/dL Urine Glucose (UA) Normal (Normal) mg/dL - ABG Interpretation ABG results: PT/INR, D-dimer PT 13.5 Seconds (9.4-12.1) H 09/26/18 01:04 - Impressions Impressions Abdomen/Pelvis CT 09/25/18 15:46 IMPRESSION: 1. Hepatic steatosis and hepatic surface nodularity suggesting hepatic cirrhosis. 2. Submucosal fat deposition within the colon suggesting chronic or recurrent inflammation. 3. Small amount of free fluid in the pelvis and mild mesenteric edema. Mild body wall edema present as well. 4. The endometrium is thickened for postmenopausal patient, measuring about 1 cm in thickness. This is greater than expected for a postmenopausal patient. Nonemergent pelvic ultrasound recommended for further evaluation. D/ / 09/25/2018 17:41:56 Adrien Morrell MD / claribel Interpreting Provider: Adrien Morrell MD Chest X-Ray 09/25/18 15:46 IMPRESSION: Stable chest x-ray including stable enlargement of the central pulmonary arteries suggesting pulmonary arterial hypertension. No acute disease. D/ / Dwight Martinez MD / Dwight Martinez MD Interpreting Provider: Dwight Martinez MD Head CT 09/25/18 16:07 IMPRESSION: No acute intracranial abnormality. 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 D/ / Dwight Martinez MD / Dwight Martinez MD Interpreting Provider: Dwight Martinez MD Liver Ultrasound 09/26/18 09:30 IMPRESSION: 1. At least moderate hepatomegaly with early cirrhosis suspected. Heterogeneous liver echogenicity corresponds with heterogeneous steatosis as seen on MRI. No definite discrete lesions are identified, although confluent lesions could potentially account for the appearance. 2. Cholecystectomy. No findings of biliary obstruction. D/ / Allen Vera MD / Allen Vera MD Interpreting Provider: Allen Vera MD Consult Discharge Plan - Plan Referrals: Joseph Chapin MD [Primary Care Provider] -
[2018-09-26] MEDS: 0.9 % Sodium Chloride 1,000 ML IVC SCH ×3 (12:38→14:54)
--- NOTE | 2018-09-26 13:51 | Discharge Summary ---
<Izaiah Richardson I - Last Filed: 09/26/18 17:01> - NOTES TO OUTPATIENT PROVIDER Notes to Outpatient Provider: Patient is transfered to [facility], to be evaluated for possible hepatorenal syndrome . Orders not resulted at time of discharge: Pending orders 09/25/18 15:45 ECG 12 lead ECG [ECG] Stat 09/25/18 17:15 Culture,Urine [RM] Stat 09/25/18 21:29 Creatinine,Urine [UCHEM] Stat Urea Nitrogen,Urine [UCHEM] Stat 09/26/18 01:50 EKG [ECG 12 lead ECG] [ECG] Stat 09/26/18 06:34 Culture,Blood [BC] Routine 09/26/18 11:09 Sodium, Urine [UCHEM] Routine 09/27/18 04:00 Basic Metabolic Panel AM 0400 Complete Blood Count [HEME] AM 0400 PT/INR [Prothrombin Time INR] [COAG] AM 0400 Date of Encounter: 09/26/18 Time of Encounter: 09:10 - Discharge Diagnosis (1) Acute respiratory failure with hypercapnia Priority: Secondary Status: Acute (2) Cardiomyopathy due to drug and external agent Priority: Secondary Status: Acute (3) Elevated liver enzymes Priority: Secondary Status: Acute (4) MARIZA (acute kidney injury) Priority: Primary Status: Acute (5) Cirrhosis Priority: Secondary Status: Acute Qualifiers: Hepatic cirrhosis type: unspecified hepatic cirrhosis Ascites presence: unspecified Qualified Code(s): K74.60 - Unspecified cirrhosis of liver (6) Acute exacerbation of chronic obstructive pulmonary disease (COPD) Priority: Secondary Status: Acute (7) Cancer of right breast, stage 2 Priority: Secondary Status: Chronic (8) CHF (congestive heart failure) Priority: Secondary Status: Acute Qualifiers: Heart failure type: diastolic Heart failure chronicity: chronic Qualified Code(s): I50.32 - Chronic diastolic (congestive) heart failure Hospital course: Ms. Crisostomo is a 68 year old female with history of breast cancer s/p right mastectomy and chemo 1yr ago, copd, DM, chemo induced cardiomyopathy which as since resolved who presents to the ED from GI clinic for complaint of increased edema and and nausea for 2-3 weeks duration.She says that over the past 2-3 weeks she has been having worsening abdominal pain and inability to eat or drink. she is feeling very nauseated most of the time. She has noticed that she has regular abdominal pain in the right upper quadrant that is 8/10 in severity and nonradiating. In addition to these symptoms, the patient has noted a yellowing of her skin.In the emergency department, the patient had labs which demonstrated sodium 128, potassium 5.6, BUN 56, Creatinine 2.56, Total Bilirubin 7.3 and INR 1.2. She Had a head CT which was negative, a CXR which showed enlargement of pulmonary arteries, and had a CT abd/pelvis demonstrating hepatic steatosis and hepatic surface nodularity suggestive of hepatic cirrhosis. the MARIZA at this time suspect mixed etiology with prerenal component, however possible/probably hepatorenal component ,Patient has new hepatic syndrome which has not previously been described in her medical history , she was unable to make urine after 1 am yesterday and vang's catheter today only 200 ml , she is now on 50ml/hr of lactated ringer , the elevated liver enzymes etiology is not clear till now MELD-Na 30 on presentation AST 328, ALT 121, ALP 634. Total Bilirubin 7.3, INR 1.2 patient appears to have worsening liver function and renal function, there is concern for hepatorenal function, and we feel that evaluation by highway traffic control technician is most appropriate and we gave albumin, octreotide, midodrine, she also had Volume overload apparent on examination, multifactorial Likely both hepatic and renal in nature . patient will be transfered to [facility] to evaluate by highway traffic control technician . Discharge discussed with: patient - Time Spent with Patient Total time spent providing and/or coordinating discharge services: - Discharge Medications Prescriptions: New Ipratropium/Albuterol Neb [Duoneb] 3 ml IH [id number] PRN inhsol PRN Reason: Shortness Of Breath/Wheezing Midodrine [ProAmatine] 7.5 mg PO 0800,1200,1700 tablet Heparin 5,000 unit SQ Q8HCO vial Metoprolol [Lopressor] 12.5 mg PO DAILY tablet Gabapentin [Neurontin] 400 mg PO TID PRN capsule PRN Reason: Pain Naloxone [Narcan] 0.4 mg IVP Q2MPRN PRN inj PRN Reason: See Comments Dextrose Gel [Gluctose] 30 gm PO ONCE PRN tube PRN Reason: Hypoglycemia Dextrose 50 % in Water (Syg) [Dextrose 50% (Syg)] 25 ml IVP AD PRN syringe PRN Reason: Hypoglycemia Dextrose Gel [Gluctose] 15 gm PO ONCE PRN tube PRN Reason: Hypoglycemia Omeprazole [PriLOSEC] 20 mg PO DAILY capsule. Ondansetron [Zofran] 4 mg IVP Q6HR PRN vial PRN Reason: Nausea Glucagon, Human Recombinant [Glucagen] 1 mg IM ONCE PRN vial PRN Reason: Hypoglycemia Insulin LISPRO [HumaLOG] 0 units SQ HS vial Insulin LISPRO [HumaLOG] 0 units SQ TIDAC vial Patient Taking Own Medication 0 each PO DAILY each Montelukast [Singulair] 10 mg PO DAILY tablet Budesonide/Formoterol 160/4.5 [Symbicort 160/4.5] 2 puff IH BIDR inh Discontinued Albuterol Sulfate [Albuterol Inhaler] 2 puff IH Q4HR PRN PRN Reason: Shortness Of Breath Vitamin E (Dl,Tocopheryl Acet) [Vitamin E] 400 unit PO BID Triamterene/HCTZ 37.5/25mg [Dyazide] 1 each PO DAILY Montelukast [Singulair] 10 mg PO DAILY Calcium Carbonate/Vitamin D3 [Calcium 600-Vit D3 800 Tablet] 1 each PO BID Roflumilast [Daliresp] 500 mcg PO DAILY Losartan [Cozaar] 50 mg PO DAILY GlipiZIDE [Glucotrol] 10 mg PO BID Potassium Chloride [Klor-Con Sprinkle] 10 meq PO TID Formoterol Fumarate [Perforomist] 20 mcg IH PRN PRN PRN Reason: Shortness Of Breath Budesonide Neb [Pulmicort Neb] 0.5 mg IH BIDR Oxygen 1 each .ROUTE AD Pravastatin Sodium [Pravachol] 40 mg PO DAILY Pantoprazole Sodium [Protonix] 40 mg PO DAILY #30 tablet. Gabapentin [Neurontin] 400 mg PO TID PRN PRN Reason: Pain Metoprolol [Lopressor] 12.5 mg PO DAILY Montelukast [Singulair] 10 mg PO DAILY hydrOXYzine HCl [Hydroxyzine HCl] 50 mg PO Q8H PRN PRN Reason: Anxiety Home Medications: Budesonide/Formoterol 160/4.5 [Symbicort 160/4.5] 2 puff IH BIDR inh 09/26/18 [Rx] Dextrose 50 % in Water (Syg) [Dextrose 50% (Syg)] 25 ml IVP AD PRN syringe 09/26/18 [Rx] Dextrose Gel [Gluctose] 15 gm PO ONCE PRN tube 09/26/18 [Rx] Dextrose Gel [Gluctose] 30 gm PO ONCE PRN tube 09/26/18 [Rx] Gabapentin [Neurontin] 400 mg PO TID PRN capsule 09/26/18 [Rx] Glucagon, Human Recombinant [Glucagen] 1 mg IM ONCE PRN vial 09/26/18 [Rx] Heparin 5,000 unit SQ Q8HCO vial 09/26/18 [Rx] Insulin LISPRO [HumaLOG] 0 units SQ HS vial 09/26/18 [Rx] Insulin LISPRO [HumaLOG] 0 units SQ TIDAC vial 09/26/18 [Rx] Ipratropium/Albuterol Neb [Duoneb] 3 ml IH [id number] PRN inhsol 09/26/18 [Rx] Metoprolol [Lopressor] 12.5 mg PO DAILY tablet 09/26/18 [Rx] Midodrine [ProAmatine] 7.5 mg PO 0800,1200,1700 tablet 09/26/18 [Rx] Montelukast [Singulair] 10 mg PO DAILY tablet 09/26/18 [Rx] Naloxone [Narcan] 0.4 mg IVP Q2MPRN PRN inj 09/26/18 [Rx] Omeprazole [PriLOSEC] 20 mg PO DAILY capsule. 09/26/18 [Rx] Ondansetron [Zofran] 4 mg IVP Q6HR PRN vial 09/26/18 [Rx] Patient Taking Own Medication 0 each PO DAILY each 09/26/18 [Rx] Allergies/Adverse Reactions: Allergy/AdvReac Type Severity Reaction Status Date / Time fluticasone Allergy Blister Verified 09/19/18 15:15 [From Advair Diskus] salmeterol Allergy Blister Verified 09/19/18 15:15 [From Advair Diskus] Date of admission: 09/25/18 22:56 Primary care physician: Joseph Chapin MD Consults: 09/26/18 00:40 Consult to Nutrition [CONS] Routine Comment: Consulting Provider: NUTRITION Reason for Dietary Consult: MST Score Consult to Pastoral Services [CONS] Routine Comment: 09/26/18 03:07 Consult to Gastroenterology [CONS] Routine Consulting Provider: Gastroenterology Elvia Reason for Consult: MELD-Na 30, cirrhosis on CT. Concern for hepatorenal syndrome, rapidly progressing. On Albumin, midodrine, octreotide. Call Completed: Yes Consult to Nephrology [CONS] Routine Consulting Provider: [facility] [place]/PHAM/KAYLAN/LESTER Reason for Consult: MARIZA, suspected hepatorenal syndrome Call Completed: Yes Discharging clinician: Lb Casanova Anticipated date of discharge: 09/26/18 - Constitutional Vitals: Temp Pulse Resp BP Pulse Ox 97.8 F 100 18 103/57 97 09/26/18 11:25 09/26/18 11:25 09/26/18 11:25 09/26/18 11:25 09/26/18 11:25 General appearance: Present: cooperative, answers questions appropriately Exam: . - Head Head exam: Present: atraumatic, normal inspection - Eye Eye exam: Present: EOMI, scleral icterus - Neck Neck exam general surgery: Present: full ROM, normal inspection, trachea midline - Respiratory Respiratory exam: Present: decreased breath sounds, CTAB, tachypnea - Cardiovascular Cardiovascular exam: Present: RRR, +S1, +S2 - GI/Abdominal GI/Abdominal exam: Present: diminished bowel sounds, distended, normal bowel sounds - Neurological Exam Neurological exam: Present: oriented X3, no focal deficits - Psychiatric Psychiatric exam: Present: normal affect, normal mood - Patient Status Disposition: Transfer Critical Access Hosp Condition: Serious Functional capacity at discharge: independent ambulation Overall status at discharge: patient is not back to baseline - Discharge Instructions Follow Up With: Joseph Chapin MD [Primary Care Provider] - - Diet and Activity Activity: increase activity as tolerated Diet: other (renal diet ) <Lb Casanova - Last Filed: 09/26/18 17:24> Orders not resulted at time of discharge: Pending orders 09/25/18 15:45 ECG 12 lead ECG [ECG] Stat 09/25/18 17:15 Culture,Urine [RM] Stat 09/26/18 01:50 EKG [ECG 12 lead ECG] [ECG] Stat 09/26/18 06:15 Lactic Acid Timed 09/26/18 06:34 Culture,Blood [BC] Routine 09/27/18 04:00 Basic Metabolic Panel AM 0400 Complete Blood Count [HEME] AM 0400 PT/INR [Prothrombin Time INR] [COAG] AM 0400 Date of Encounter: 09/26/18 - Discharge Diagnosis (1) Hepatorenal failure Priority: Primary Status: Suspected (2) COPD (chronic obstructive pulmonary disease) Priority: Secondary Status: Chronic Qualifiers: COPD type: unspecified COPD Qualified Code(s): J44.9 - Chronic obstructive pulmonary disease, unspecified (3) Heart failure with preserved ejection fraction Priority: Secondary Status: Chronic Qualifiers: Heart failure chronicity: chronic Qualified Code(s): I50.32 - Chronic diastolic (congestive) heart failure (4) Diabetes Priority: Secondary Status: Chronic Qualifiers: Diabetes mellitus type: type 2 Diabetes mellitus 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 Crisostomo is a 68 year old female - Time Spent with Patient Total time spent providing and/or coordinating discharge services: 34min Date of admission: 09/25/18 22:56 Primary care physician: Joseph Chapin MD Consults: 09/26/18 00:40 Consult to Nutrition [CONS] Routine Comment: Consulting Provider: NUTRITION Reason for Dietary Consult: MST Score Consult to Pastoral Services [CONS] Routine Comment: 09/26/18 03:07 Consult to Gastroenterology [CONS] Routine Consulting Provider: Gastroenterology Elvia Reason for Consult: MELD-Na 30, cirrhosis on CT. Concern for hepatorenal syndrome, rapidly progressing. On Albumin, midodrine, octreotide. Call Completed: Yes Consult to Nephrology [CONS] Routine Consulting Provider: [facility]/PHAM/KAYLAN/LESTER Reason for Consult: MARIZA, suspected hepatorenal syndrome Call Completed: Yes - Constitutional Vitals: Temp Pulse Resp BP Pulse Ox 98.6 F 95 14 105/44 98 09/26/18 15:36 09/26/18 15:36 09/26/18 16:17 09/26/18 15:36 09/26/18 16:17 - Attending Attestation I examined this patient and my medical decision-making was reviewed with the Resident Physician on 09/26/18. I agree with the documented findings, disposition and treatment plan as described except to the extent set forth below. Ms Crisostomo has been admitted for acute presumptive hepatorenal syndrome. She has been evaluated by Nephrology and Gastroenterology. It was felt best that she be transferred due to her apparent liver failure. Her potassium has been elevated and treated. Her urine output is minimal. Exam: Alert. Mild distress with breathing. Neck supple. Heart reg and distant. Not tachy now. Lungs with rhonchi bilaterally. Abd soft and tender RUQ area. Edema present. Plan: d/C to [facility].
[2018-09-26] MEDS ORDERED: Ringers Solution, Lactated 1,000 ML IVC SCH (14:15)
[2018-09-26 15:10] LABS: Creatinine,Urine 169 mg/dL
[2018-09-26] MEDS ORDERED: Insulin LISPRO 300 UNITS/3 ML VIAL SQ SCH (21:00)
[2018-09-27 00:01] VITALS: BP 100/83
--- NOTE | 2018-09-27 00:18 | Electrocardiograph Report ---
[facility] Test Date: 2018-09-25 Pat Name: Bea Crisostomo Department: [id number] Room: 2NE30 Gender: F Paper Slitter: : 1950 Requested By: Steven Moran Order Number: [id number] Reading MD: Ximena Ordaz Measurements Intervals [place] Rate: 140 P: -24 MA: 150 QRS: 7 QRSD: 88 T: 208 QT: 314 QTc: 405 Interpretive Statements Sinus tachycardia Paired ventricular premature complexes Low voltage, extremity and precordial leads Consider anterior infarct Borderline repolarization abnormality Electronically Signed On 09-27-2018 0:16:28 EDT by Ximena Ordaz
--- NOTE | 2018-09-29 10:36 | Electrocardiograph Report ---
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
== END 2018-09-27 01:13 | disposition critical access hospital (66) ==
LOC: EMEROOARM 15:23 → 2NENU 15:23 → SUATTDRO 22:56 → 2NENU 23:19
PROVIDERS: ADMIT Internal Medicine; ATTEND Internal Medicine